=== PATIENT | male | born 1940 | race Caucasian/White ===

== ENCOUNTER 2022-05-31 13:05 | Outpatient (CLI) | payer MEDICARE, SELFPAY | END 2022-05-31 13:06 | disposition home or self-care (01) | PROVIDERS: PCP Family Medicine; Visit Provider Internal Medicine | DX: R06.09 Other forms of dyspnea (principal); I51.7 Cardiomegaly; I48.0 Paroxysmal atrial fibrillation; Z95.0 Presence of cardiac pacemaker | CPT/HCPCS: 93306 ==

== ENCOUNTER 2022-07-26 09:06 | Outpatient (CLI) | payer MEDICARE, SELFPAY | END 2022-07-26 09:07 | disposition home or self-care (01) | LOC: OP CLINIC 09:06 | PROVIDERS: PCP Family Medicine; Visit Provider Internal Medicine Gastroenterology | DX: Z12.11 Encounter for screening for malignant neoplasm of colon (principal); K63.5 Polyp of colon; K57.30 Diverticulosis of large intestine without perforation or abscess without bleeding; Z86.010 Personal history of colon polyps | CPT/HCPCS: 45380; 45385; 88305; J2250; J3010 ==

== ENCOUNTER 2022-11-16 10:00 | Outpatient (RCR) | payer MEDICARE, SELFPAY | END 2022-11-16 10:58 | disposition home or self-care (01) | PROVIDERS: PCP Family Medicine; Visit Provider Family Medicine | DX: M25.562 Pain in left knee (principal); Z51.89 Encounter for other specified aftercare | CPT/HCPCS: 97012; 97110; 97140; 97162 ==

== ENCOUNTER 2023-06-23 08:30 | Outpatient (RCR) | payer MEDICARE, SELFPAY | END 2023-09-14 09:59 | disposition home or self-care (01) | PROVIDERS: PCP Family Medicine; Visit Provider Specialist | DX: M50.20 Other cervical disc displacement, unspecified cervical region (principal); M54.12 Radiculopathy, cervical region; M25.512 Pain in left shoulder; Z51.89 Encounter for other specified aftercare | CPT/HCPCS: 97110; 97112; 97140; 97162 ==

== ENCOUNTER 2023-09-26 11:53 | Inpatient (IN) | payer MEDICARE, SELFPAY ==
[2023-09-26] VITALS (23 sets, daily range): BP systolic 136–171; BP diastolic 72–95; PULSE 60–89; RESP 16–20; TEMP 36.6–36.7; O2SAT 91–97; BMI 36.2; BMI 34.9
--- NOTE | 2023-09-26 12:21 | CRLHL7_ITS ---
For Patients: As a result of the Century Cures Act, medical imaging exams and procedure reports are released immediately into your electronic medical record. You may view this report before your referring provider. If you have questions, please contact your health care provider. INDICATION: Right-sided abdominal pain for 2 days. TECHNIQUE: CT abdomen and pelvis acquired with 100 cc Isovue 370 IV contrast. COMPARISON: 12/22/2021. FINDINGS: Lower chest: Partially visualized dual chamber pacemaker leads. Minimal dependent atelectasis. Liver: Unremarkable. Normal in size and attenuation. No suspicious masses. Gallbladder and bile ducts: Multiple small gallstones within the gallbladder neck and body. No pericholecystic inflammatory change or biliary ductal dilation. Pancreas: Unremarkable. No mass or inflammation. Spleen: Unremarkable. Normal in size. No masses. Adrenal glands: Unremarkable. No nodules. Kidneys: Symmetric renal enhancement. No hydronephrosis. Punctate low right interpolar renal calculus. No ureteral calculi. GI tract: Nonobstructed bowel. Moderate colonic fecal burden. Scattered descending and sigmoid colon diverticula without findings of diverticulitis. The appendix is not definitively visualized. No inflammatory changes at the cecal pole to suggest appendicitis. Mesenteric he haziness in the mid abdomen with scattered subcentimeter lymph nodes. Vasculature: Abdominal aorta is normal in caliber. Lymph nodes: No lymphadenopathy. Peritoneum/Abdominal Wall: Unremarkable. No sign of mass or infiltration. No free air or significant free fluid. Pelvis: Unremarkable. Bones: Osseous demineralization. Moderate bilateral hip osteoarthritis. Severe degenerative changes of the left L5-S1 facet and irregularity of the left posterior ilium, which may be from prior bone graft harvest site. There are laminectomy changes at L4-L5 with interbody graft. Additionally, there are laminectomy changes at L1-L3 with chronic nondisplaced fractures of bilateral L2 inferior articular processes with similar trace anterolisthesis of L2 on L3. Multilevel degenerative disc disease involving the thoracolumbar spine with evidence of diffuse idiopathic skeletal hyperostosis. IMPRESSION: 1. No acute abnormality identified to explain the patient`s right-sided abdominal pain. 2. Chronic incidental findings including cholelithiasis, diverticulosis and right nephrolithiasis. 3. 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 Please note that all CT scans at this facility use dose modulation, iterative reconstruction, and/or weight-based dosing when appropriate to reduce radiation dose to as low as reasonably achievable. Dictated by Dagmar Brothers MD @ 09/26/2023 3:00:47 PM (Electronically Signed)
--- OUTSIDE RECORDS SUMMARY | 2023-09-26 12:30 | XMS_ITS | Continuity of Care Document ---
Author Name Unknown Organization [facility] Address [address] [place] [address] Phone Care Team Providers Care Sheet Mill Supervisor Name Role Phone Angy VALENTE MD, Bipin Unavailable Unavailable Advance Directives Directive Yes / No Effective Date File Name No Information Encounters Encounter Description Practice Location Reason(s) For Visit Diagnoses Date Provider Providers Copied on Encounter [facility], [address], [place], [place], [id number], [place] tel:[phone] No Information [address], [place], [address], [place]. tel:[phone] Referring Provider: Bipin Butt, [address] [place], [place], [facility]. tel:[phone] Family History Family Member Type Diagnosis Age At Onset No Information Payers Payer name Insurance type Covered democrat ID Authoriza tion(s) AAR Medicare Complete CI [id number] Social History Type Description Quantity Date Captured Comments Sex Male Smoking Status No Information Chief Complaint And Reason For Visit No Information Reason For Referral Reason For Referral No Information History Of Present Illness Encounter Date Complaint History Of Prese nt Illness No Information Functional Status Date Functional Assessmen t No Information Instructions Date Instruction Additional Infor mation No Information Assessments Type Assessment Date No Information Patient Care Teams Name Effective Dates (start - stop) Status Members No Information
--- OUTSIDE RECORDS SUMMARY | 2023-09-26 12:30 | XMS_ITS | Clinical Summary ---
Author Name Unknown Organization [facility] Address [place], [place] [address] Care Team Providers Care Drain Technician Name Role Phone Oscar Taylor MD Unavailable [phone] Raffaele Mcdowell MD Unavailable Louis Aguilar MD Unavailable Unavail able Teresa Salazar DO Primary Care Provider [phone] Sylvie Zamora RN Unavailable [phone] Allergies Active Allergy Reactions Criticality Noted Date Comments Bee Venom Protein (Honey Bee) Anaphylaxis High 07/01 Hymenoptera Allergenic Extract Anaphylaxis bee stings Medications Medication Sig Dispensed Refills Start Date End Date Status omega-3 fatty acids-vitamin E (FISH OIL) 1,000 mg capIndications:Arth ralgia Take by mouth once daily. 0 04/25/2012 Active sod bicarb-sod chlor-neti pot (NEILMED NASAFLO) pkdvIndications:Sin us pain,Acute recurrent maxillary sinusitis by sinus irrigation route once daily. 1 Each 3 10/09/2019 Active multivitamin (MVI) tablet Take 1 tablet by mouth once daily. 0 01/03/2020 Active WalkerIndications:C hronic bilateral low back pain without sciatica,Primary osteoarthritis of right knee Walker with wheels,seat,hand brakes,and basket for home use. 1 Device 0 05/26/2020 Active menthol (BIOFREEZE, MENTHOL,) 5 % topical gel Once daily as needed. 0 07/21/2020 Active ascorbic acid, vitamin C, (VITAMIN C) 1,000 mg tablet Take 1 tablet by mouth once daily. 0 08/05/2020 Active durable medical equipment (DME)Indications:Ed maureen of left lower extremity One pair of compression stockings (15-20 mmHg) 2 Each 0 10/29/2020 Active magnesium oxide (MAG-OX 400) 400 mg tabletIndications:F requent PVCs Take 1 Tablet (400 mg) by mouth once daily. 0 02/04/2021 Active budesonide (PULMiCORT) 1 mg/2 mL neb suspensionIndicatio ns:Chronic sinusitis, unspecified location,Rhinorrhea ,Nasal septal perforation Put 1 respule in sinus rinse kit and irrigate 2 times daily 60 mL 0 10/13/2021 Active triamcinolone (ARISTOCORT; KENALOG) 0.1 % creamIndications:Pr uritus Apply topically to affected area(s) once daily. 80 g 1 11/18/2021 Active white petrolatum-mineral oil-lanolin (Eucerin) topical creamIndications:Pr uritus Apply topically to affected area(s) once daily if needed for Dry Skin. 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 60 Tablet 1 02/08/2022 Active fexofenadine (ARCADIO) 180 mg tabletIndications:P erennial allergic rhinitis Take 180 mg by mouth once daily. 90 tablet. 3 02/08/2022 Active mupirocin (BACTROBAN OINTMENT) ointmentIndications :Chronic sinusitis, unspecified location,Rhinorrhea ,Nasal septal perforation,Vasomot or rhinitis,Nasal congestion PUT A PEA SIZE AMOUNT INTO SINUS RINSE KIT AND IRRIGATE TWICE DAILY 22 g 5 11/09/2022 Active amLODIPine (NORVASC) 5 mg tabletIndications:E ssential hypertension Take 1 Tablet (5 mg) by mouth two times daily. 180 Tablet 3 11/29/2022 Active acyclovir (ZOVIRAX) 400 mg tabletIndications:R ecurrent cold sores Take 1 Tablet (400 mg) by mouth two times daily. 180 Tablet 3 12/20/2022 Active finasteride (PROSCAR) 5 mg tabletIndications:B enign prostatic hyperplasia, unspecified whether lower urinary tract symptoms present Take 1 Tablet (5 mg) by mouth every morning. 90 Tablet 3 01/12/2023 Active tamsulosin (FLOMAX) 0.4 mg capsuleIndications: Benign prostatic hyperplasia, unspecified whether lower urinary tract symptoms present Take 1 Capsule (0.4 mg) by mouth once daily after a meal. 90 Capsule 3 01/12/2023 Active pantoprazole (PROTONIX) 40 mg delayed-release tabletIndications:G astroesophageal reflux disease, unspecified whether esophagitis present Take 1 Tablet (40 mg) by mouth once daily. 90 Tablet 3 01/12/2023 Active glimepiride (AMARYL) 2 mg tabletIndications:T ype 2 diabetes mellitus with hyperglycemia, without long-term current use of insulin (HC) Take 0.5 Tablets (1 mg) by mouth once daily with a meal. 45 Tablet 3 01/12/2023 Active metFORMIN (GLUCOPHAGE) 1,000 mg tabletIndications:T ype 2 diabetes mellitus with hyperglycemia, without long-term current use of insulin (HC) Take 1 Tablet (1,000 mg) by mouth two times daily with meals. 180 Tablet 3 01/12/2023 Active flecainide (TAMBOCOR) 50 mg tabletIndications:F requent PVCs,Paroxysmal atrial fibrillation (HC) Take 1 Tablet (50 mg) by mouth every 12 hours. 180 Tablet 3 01/12/2023 Active lisinopriL (PRINIVIL; ZESTRIL) 20 mg tabletIndications:E ssential hypertension Take 1 Tablet (20 mg) by mouth two times daily. 180 Tablet 3 01/12/2023 Active montelukast (SINGULAIR) 10 mg tabletIndications:P erennial allergic rhinitis Take 1 Tablet (10 mg) by mouth at bedtime. 90 Tablet 3 01/12/2023 Active cloNIDine HCL (CATAPRES) 0.1 mg tabletIndications:R esistant hypertension Take 1 Tablet (0.1 mg) by mouth two times daily. 180 Tablet 3 03/18/2023 Active warfarin (COUMADIN) 5 mg tabletIndications:P aroxysmal atrial fibrillation (HC),Anticoagulatio n monitoring, INR range 2-3 Take by mouth 10 mg (5 mg x 2) every e, Fri; 7.5 mg (5 mg x 1.5) all other days in the evening OR as directed 0 05/03/2023 Active atorvastatin (LIPITOR) 40 mg tabletIndications:H yperlipidemia, unspecified hyperlipidemia type Take 1 Tablet (40 mg) by mouth at bedtime. 90 Tablet 3 07/06/2023 Active carvediloL (Coreg) 12.5 mg tabletIndications:E ssential hypertension Take 1.5 Tablets (18.75 mg) by mouth two times daily with meals. 90 Tablet 11 08/16/2023 4 Active blood sugar diagnostic (OneTouch Ultra Test) stripIndications:Ty pe 2 diabetes mellitus with hyperglycemia, without long-term current use of insulin (HC) Test 2 times/day. Dispense item covered by pt ins. E11.9 NIDDM type II Reason: High A1C 200 Each 3 08/25/2023 Active BiPapIndications:Ob structive sleep apnea bPAP machine for home use at pressure: I: 14 E: 10 cmw , Heated humidifier x 1 q 5 yr, Humidifier chamber x 1 q 6 mo, Full face mask x1 q 3mos, with cushion x 2 q mo, Heated tubing x 1 q 3 mo, Headgear x 1 q 6 mo, Filters: Disposable x 2 q mo non-disposable filters x1 q 6mo, Length of Need: 99 months, Frequency of use: Daily 1 Each 11 09/20/2023 Active BiPapIndications:Ob structive sleep apnea bPAP machine for home use at pressure: I: 14 E: 10 cmw , Heated humidifier x 1 q 5 yr, Humidifier chamber x 1 q 6 mo, Full face mask x1 q 3mos, with cushion x 2 q mo, Heated tubing x 1 q 3 mo, Headgear x 1 q 6 mo, Filters: Disposable x 2 q mo non-disposable filters x1 q 6mo, Length of Need: 99 months, Frequency of use: Daily 1 Device 11 12/10/2020 4 Discontinu ed(*Medica tion adjustment ) Active Problems Problem Noted Date Diagnosed Date TIA (transient ischemic attack) 07/01/2023 Cervical radiculopathy 03/26/2023 Arthritis of carpometacarpal (CMC) joint of left thumb 03/26/2023 Overview: February 2023: Left thumb CMC Joint injection. Neck pain, chronic 01/19/2023 Overview: December 2022: Rayus C7-T1 epidural steroid injection. 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 Justin Bates, Pacemaker is MRI conditional Safe, It needs interrogation/reprogramming right before and right after the MRI. Family history of rectal cancer 06/16/2022 Overview: brother Other specified anemias 12/22/2021 Paroxysmal atrial fibrillation 07/16/2020 Anticoagulation monitoring, INR range 2-3 2019 Primary osteoarthritis of right knee 10/02/2019 Anemia of unknown etiology 10/02/2019 Type 2 diabetes mellitus wit h hyperglycemia, without long-term current use of insulin 09/12/2019 Chronic diastolic CHF (congestive heart failure) 10/12/2017 Perennial allergic rhinitis 06/29/2016 Herniated disc, cervical 02/20/2016 Essential hypertension 10/07/2015 Adenomatous colon polyp 04/11/2014 Overview: Colonoscopy 03/2014 polyp repeat in 5 years Colonoscopy 06/2022 TA, no follow up needed B12 deficiency 03/07/2014 Fatty liver 11/02/2013 Overview: On CT 11/02/13 Chronic meniscal tear of knee 04/03/2013 Overview: L knee R knee 2014 Frequent PVCs 04/25/2012 Stenosing tenosynovitis - left index finger 12/29 Sensorineural hearing loss, bilateral 01/26/2012 Overview: Left worse than the right PANCHO 11/29/2010 AHI-35 02/11/2011 SVT (supraventricular tachycardia) Overview: -diagnosed 1998 -10/2010 recurrent SVT x4 with visits to [place] (10/16/10, 11/03/10, 11/05/10, 11/07/10) -EPS and ablation with Dr. Soto -11/27/2010 Benign prostatic hypertrophy Chronic bilateral low back pain without sciatica Overview: -s/p 4 lumbar surgeries Severe obesity Dyslipidemia Diabetes mellitus without complication Overview: -Pre-DM diagnosed 2006 and DM diagnosed 11/2009 Resolved Problems Problem Noted Date Diagnosed Date Resolved Date Sleep apnea 04/12/2011 06/28/2017 Perennial allergic rhinitis 04/01/2011 06/29/2016 Impaired fasting glucose 12/05/2009 Overview: Dx 2006 Other abnormal glucose 12/05 Overview: Since 2006 Allergic rhinitis 06/29/2016 Encounters Date Type Department Care Team Description 09/26/[address] [address] Shirley Gonsalez PA Abdominal Pain 09/20/2023 9:00 AM DRUM FILLER Office Visit [address] [address] Kali Kate MD Sleep Follow-up 09/20/2023 Travel 09/19/[address] [address] Marianna Lopez NP Appointment 09/05/2023 Anticoagulation (warfarin) [address] [address] 1[facility] Anticoagulation 09/02/2023 2:30 PM DRUM FILLER Ancillary Procedure [address] [address] 09/02/2023 9:20 AM DRUM FILLER Orders Only [address] [address] Lab[facility] 09/02/2023 7:50 AM DRUM FILLER Office Visit [facility] [address] [place] [address] Refugio France MD Musculoskeletal Problem (Follow-up for LEFT Knee and LEFT Wrist injury/DOI 08/08/[address] leading into home/Knee seems better, Wrist about the same) 09/02/2023 Telephone [facility] Yuan [address] [place] [address] [place] [address] Luis Enrique Johnston MD Results 09/02/2023 Travel 08/25/2023 12:00 PM DRUM FILLER Ancillary Procedure [facility] [address] [place] [address] 08/25/2023 11:00 AM DRUM FILLER Office Visit [facility] [address] [place] [address] Teresa Salazar DO Medicare ANNUAL (subsequent) Visit 08/25/2023 Patient Outreach [facility] Care Management - Advanced Care Team [address] [place] [address] Altagracia Ramos Complex Care Management (Engagement Outreach) 08/25/2023 Travel 08/16/2023 3:30 PM DRUM FILLER Office Visit [facility] [address] [place] [address] Luis Enrique Johnston MD Follow Up (Annual follow up /PVC, SOB and A fib /In June possible experiencing TIA ) 08/16/2023 Travel 08/11/2023 10:30 AM DRUM FILLER Ancillary Procedure [facility] [address] [place] [address] 08/11/2023 10:15 AM DRUM FILLER Ancillary Procedure [facility] [address] [place] [address] 08/11/2023 9:05 AM DRUM FILLER Office Visit [facility] [address] [place] [address] Refugio France MD Musculoskeletal Problem (Consultation for LEFT Knee and LEFT Wrist Injury/Had a fall on 08/08/2023/Tripped on step leading into house. Landing on LEFT knee and LEFT hand) 08/11/2023 Travel 08/09/2023 1:20 PM DRUM FILLER Orders Only [facility] [address] [facility] [address] [facility] 08/09/2023 Anticoagulation (warfarin) [facility] [address] [place] [address] 1[facility] Anticoagulation 08/09/2023 Travel 07/25/2023 1:40 PM DRUM FILLER Orders Only [facility] [address] [place] [address] [facility] 07/25/2023 Anticoagulation (warfarin) [facility] [address] [facility] [place] [address] 1, [facility] Anticoagulation 07/25/2023 Telephone [facility] [address] [place] [address] Marie Teresa Pat, DO Anticoagulation (BPA-/doxycycline 100 mg tablet/) 07/25/2023 Travel 07/19/2023 10:00 AM DRUM FILLER Orders Only [facility] [address] [place] [address] [facility] 07/19/2023 Anticoagulation (warfarin) [facility] [address] [place] [address] 1[facility] Anticoagulation 07/19/2023 Travel 07/05/2023 9:40 AM DRUM FILLER Orders Only [facility] [address] [place] [address] [facility] 07/05/2023 Anticoagulation (warfarin) [facility] [address] [place] [address] 1[facility] Anticoagulation 07/05/2023 Telephone [facility] [address] [place] [address] Marie Teresa Pat, DO Anticoagulation 07/05/2023 Travel 07/02/2023 Anticoagulation (warfarin) [facility] [address] [place] [address] [facility] Anticoagulation (Office Visit ) 07/02/2023 Telephone [facility] [address] [facility] [address] Teresa Salazar Pat, DO Anticoagulation (Renewal Orders) 07/01/2023 2:10 PM CDT Office Visit [facility] [address] [place] [address] Marie Teresa Pat, DO Edema (compression socks worn. only since knee surgery. last couple weeks); Sob (SOB last few months, has sinus problems, cough and post nasal drip) 07/01/2023 Travel 06/27/2023 Nurse/Clinic Staff Only [facility] [address] [place] [address] Darlene Espinoza PA Flu Shot (Walk in flu shot/) from Last 3 Months Immunizations Name Administration Dates Next Due COVID-19 Vaccine Spikevax (M oderna 50mcg/0.5mL) 12YO+ [id number] Formula PF 08/25/2023 COVID-19 vaccine (Pfizer-Bio NTech 30mcg/0.3mL) 12YO+ BIVALENT PF, MDV 05/17/2022 COVID-19 vaccine (Pfizer-Bio NTech 30mcg/0.3mL) PF, MDV 05/26/2021,11/13/2020,10/23/2020 Influenza, High-dose Inactivated 06/29/2016,01/2016,07/03/2014 Influenza, IIV3 (Age >=3 years) 07/31/2013,09/08,08/15/2009 Influenza, Inactivated AIIV4 (Age 65+ Years) Preserv Free 06/27/2023,06/14/2022,09/07/2021,2019 Influenza, Inactivated IIV3 (Age 65+ Years) Preserv Free 06/05/2019,06/05/2019,06/13/2018,2016 Pneumococcal Poly,23-Valent (Pneumovax) 11/05/2011,07/11/1997 Pneumococcal conj 13-Valent (Prevnar 13) 07/13/2016 Td (Age >=7 Years) 10/27/2005 Tdap 01/17/2013 Tuberculin (PPD) 07/13/2011 Zoster (Shingrix-RZV, recombinant) 04/11/2019,,12/27/2018 Zoster (Zostavax-ZVL, live) 07/31/2013 Family History Medical History Relation Name Comments Cancer-colon Brother in his 50's Diabetes Father d 87 yo Heart Disease Father [place] 77 yo Blood Disease Mother B12 deficiency Heart Disease Mother CABG in her 70 's b 1916 Diabetes Sister 1 Diabetes Sister 2 Cancer Sister 3 ovarian CA Anesthesia Problem No Family History Relation Name Status Comments Brother Father Mother Sister 1 Sister 2 Sister 3 Social History Tobacco Use Types Packs/Day Years Used Date Smoking Tobacco: Never Passive Smoke Exposure: Never Smokeless Tobacco: Never Tobacco Cessation:Counseling Given: Not Answered Alcohol Use Standard Drinks/Week Comments No 0 (1 standard drink = 0.6 oz pur e alcohol) PHQ-2 Answer Date Recorded PHQ-2 TOTAL SCORE 1 08/25/2023 Social Connections Answer Date Recorded Frequency of Communication with Friends and Fami ly Not on file 12/27/2022 Financial Resource Strain Answer Date R ecorded Difficulty of Paying Living Expenses 3 12/22/2021 Difficulty of Paying Living Expenses Not on file 12/22/2021 Food Insecurity Answer Date Recorded Worried About Running Out of Food in the Last Ye ar 1 12/22/2021 Transportation Needs Answer Date Record ed Lack of Transportation (Medical) 1 12/22/2021 Housing Stability Answer Date Recorded Unable to Pay for Housing in the Last Year 1 12/22/2021 Sex and Gender Information Value Date Recorded Sex Assigned at Not on file Gender Identity Not on file Sexual Orientation Not on file Obstetrics History Last Filed Vital Signs Vital Sign Reading Time Taken Comments Blood Pressure 145/65 09/20/2023 9:00 AM DRUM FILLER Pulse 82 09/20/2023 9:00 AM DRUM FILLER Temperature 36.7 ??C (98.1 ??F) 10/01/2022 9:22 AM CS T Respiratory Rate 18 11/09/2022 9:32 AM CDT Oxygen Saturation 98% 09/20/2023 9:00 AM DRUM FILLER Inhaled Oxygen Concentration - - Weight 108.6 kg (239 lb 6.4 oz) 09/20/2023 9:00 AM DRUM FILLER Height 170.2 cm (5' 7) 09/20/2023 9:00 AM DRUM FILLER Body Mass Index 37.5 09/20/2023 9:00 AM DRUM FILLER Plan of Treatment Upcoming Encounters Date Type Department Care Team (Late st Contact Info) Description 09/29/2023 3:05 PM DRUM FILLER Office Visit [facility] [address] [place] [address] Refugio France MD [address] [place] [address] 09/30/2023 9:00 AM DRUM FILLER Orders Only [address] [address] [place] 10/26/2023 9:20 AM DRUM FILLER Office Visit [address] [address] Teresa Salazar Pat, DO [address] [place] [address] 01/10/2024 1:30 PM CDT Cardiac Device Check [facility] [address] [place] [phone] Health Maintenance Due Date Last Done Comments Tetanus booster 01/17/2023 01/17/2013, 10/27/2005 Medicare Wellness for age 65+ 08/24/2024, 09/07/2021, 10/02/2019, Additional history exists Depression screening for age 12+ 08/25/2024 08/25/2023, 08/25/2023, 08/07/2022, Additional history exists BMI (ht and wt on same day) for age 18+ 09/20/2024 09/20/2023, 08/25/2023, 12/28/2022, Additional history exists Tdap Completed 01/17/2013 Pneumococcal series for age 65+ Completed 07/13/2016, 11/05/2011, 07/11/1997 Zoster (shingles) series for age 50+ Completed 04/11/2019, 03/29/2019, 12/27/2018, Additional history exists Influenza for age 65+ Completed 06/27/2023 , 06/14/2022, 09/07/2021, Additional history exists COVID-19 vaccine series Completed 08/25/20, 05/17/2022, 05/26/2021, Additional history exists Goals Goal Patient Goal Type Associated Problems Recent Progress Patient-Stated? Author BLOOD PRESSURE - MAINTAINS BP less than 140/90 Blood Pressure No Vipin Nick MD BLOOD PRESSURE-MAINTA INS BP LESS THAN 130/80 Blood Pressure No Edward Philippe MD Medical Devices Implanted Type Area Company Driver Device Identifier Shelf Expiration Date Model / Serial / Lot Dual Chamber Mri Conditional Pacemaker Implanted:08/27 by Justin Bates MD (Quantity not on file) Standard Pacemaker [employer] JOHN XT DR MRI SUREVAAN [id number] / [id number] / [id number] 42bone Cerv 8mm 4deg David W/P [[id number]] Implanted:Qty: 1 on 02/20/2016 by Leyla Acosta MD at [facility] Explanted:at [facility] (Quantity not on file) N/A: Spine David Spine 07/07/2020 [id number] / [id number] / [id number] Matrix 1cc Dbx Putty Dbm [[id number]] Implanted:Qty: 1 on 02/20/2016 by Leyla Acosta MD at [facility] Explanted:at [facility] (Quantity not on file) N/A: Spine Musculoskeletal Transplant 10/27/2017 [id number] / [id number] / [id number] 56bone Cerv 8mm 4deg David W/P [[id number]] Implanted:Qty: 1 on 02/20/2016 by Leyla Acosta MD at [facility] Explanted:at [facility] (Quantity not on file) N/A: Spine Berclair Spine 09/30/2020 [id number] / [id number] / Plate Cerv 2lvl 32mm Aviator Ant - [id number] Implanted:Qty: 1 on 02/20/2016 by Leyla Acosta MD at [facility] N/A: Spine Berclair Spine [id number] / / Screw Cerv Ant 4.0x14mm Aviator Va Slf Drill - [id number] Implanted:Qty: 6 on 02/20/2016 by Leyla Acosta MD at [facility] N/A: Spine Berclair Spine [id number] / / Procedures Procedure Name Priority Date/Time Associated Diagnosis Comments US CAROTID DUPLEX BILATERAL Routine 09/02/2023 3:18 PM DRUM FILLER Essential hypertension INR,POCT Routine 09/02/2023 8:52 AM DRUM FILLER Paroxysmal atrial fibrillation (HC) Anticoagulation monitoring, INR range 2-3 XR WRIST W NAVICULAR MINIMUM 3 VIEWS LEFT Routine 08/25/2023 12:10 PM DRUM FILLER Pain of left thumb XR WRIST W NAVICULAR MINIMUM 3 VIEWS LEFT Routine 08/11/2023 10:20 AM DRUM FILLER Left wrist pain XR KNEE 3 VIEWS LEFT Routine 08/11/2023 10:20 AM DRUM FILLER Acute pain of left knee INR,POCT Routine 08/09/2023 11:37 AM DRUM FILLER Paroxysmal atrial fibrillation (HC) Anticoagulation monitoring, INR range 2-3 INR,POCT Routine 07/25/2023 9:40 AM DRUM FILLER Paroxysmal atrial fibrillation (HC) Anticoagulation monitoring, INR range 2-3 INR,POCT Routine 07/19/2023 10:06 AM DRUM FILLER Paroxysmal atrial fibrillation (HC) Anticoagulation monitoring, INR range 2-3 INR,POCT Routine 07/05/2023 9:41 AM DRUM FILLER Paroxysmal atrial fibrillation (HC) Anticoagulation monitoring, INR range 2-3 URINE ALBUMIN TO CREATININE RATIO, RANDOM Routine 07/01/2023 3:14 PM CDT Type 2 diabetes mellitus with hyperglycemia, without long-term current use of insulin (HC) CBC WITH AUTO DIFFERENTIAL Routine 07/01/2023 3:12 PM CDT Hyperlipidemia, unspecified hyperlipidemia type Essential hypertension HEMOGLOBIN A1C Routine 07/01/2023 3:12 PM CDT Type 2 diabetes mellitus with hyperglycemia, without long-term current use of insulin (HC) BASIC METABOLIC PANEL Routine 07/01/2023 3:12 PM CDT Essential hypertension CBC WITH AUTO DIFFERENTIAL Routine 07/01/2023 3:12 PM CDT Hyperlipidemia, unspecified hyperlipidemia type Essential hypertension LIPID PANEL W REFLEX MEASURED LDL Routine 07/01/2023 3:12 PM CDT Hyperlipidemia, unspecified hyperlipidemia type ALT (SGPT) Routine 07/01/2023 3:12 PM CDT Fatty liver PROTIME-INR STAT 07/01/2023 3:12 PM CDT Paroxysmal atrial fibrillation (HC) Anticoagulation monitoring, INR range 2-3 from Last 3 Months Results * US CAROTID DUPLEX BILATERAL (09/02/2023 3:18 PM DRUM FILLER) Anatomical Region Laterality Modality CAROTID, NECK Ultrasound 09/02/2023 3:25 PM DRUM FILLER Impressions 09/02/2023 3:25 PM DRUM FILLER Less than 50 percent stenosis of the internal carotid arteries bilaterally. Dictated by Rene Mtz MD @ Aug ??5 2023 ??3:25PM (Electronically Signed) ?? Narrative 09/02/2023 3:25 PM DRUM FILLER For Patients: ??As a result of the 21st Century Cures Act, medical imaging exams and procedure reports are released immediately into your electronic medical record. ??You may view this report before your referring provider. ??If you have questions, please contact your health care provider. CLINICAL HISTORY: Hypertension Comparison: 03/23/2019 TECHNIQUE: The carotid circulations and the vertebral arteries in the neck were examined with de la cruz-scale ultrasound, color-flow and Doppler spectral analysis. Degrees of stenosis were determined using SRU 2002 Consensus Panel Criteria. FINDINGS: Sonographic images demonstrate minimal atherosclerotic plaque formation or suspicious soft tissue mass. ??There was antegrade blood flow demonstrated within the vertebral arteries and the subclavian arteries demonstrated a normal triphasic waveform. ??The spectral Doppler tracings of the common carotid, internal and external carotid arteries demonstrate no abnormal turbulence or spectral broadening. ??There was no significant elevation of peak systolic blood flow which would indicate a hemodynamically-significant stenosis by SRU criteria. The ICA/CCA peak systolic velocity ratio measures 0.9 on the right and 1.2 on the left. ?? Procedure Note Rene Mtz MD - 09/02/2023 For Patients: As a result of the Cures Act, medical imagingexams and procedure reports are released immediately into your electronicmedical record. You may view this report before your referring provider.If you have questions, please contact your health care provider. CLINICAL HISTORY: Hypertension Comparison: 03/23/2019 TECHNIQUE: The carotid circulations and the vertebral arteries in the neck wereexamined with de la cruz-scale ultrasound, color-flow and Doppler spectralanalysis. Degrees of stenosis were determined using SRU 2002 ConsensusPanel Criteria. FINDINGS: Sonographic images demonstrate minimal atherosclerotic plaque formation orsuspicious soft tissue mass. There was antegrade blood flow demonstratedwithin the vertebral arteries and the subclavian arteries demonstrated anormal triphasic waveform. The spectral Doppler tracings of the commoncarotid, internal and external carotid arteries demonstrate no abnormalturbulence or spectral broadening. There was no significant elevation ofpeak systolic blood flow which would indicate ahemodynamically-significant stenosis by SRU criteria. The ICA/CCA peaksystolic velocity ratio measures 0.9 on the right and 1.2 on the left. IMPRESSION: Less than 50 percent stenosis of the internal carotid arteriesbilaterally. Dictated by Rene Mtz MD @ Sep 02 2023 3:25PM (Electronically Signed) Luis Enrique Johnston MD [place] * (ABNORMAL) INR,POCT (09/02/2023 8:52 AM DRUM FILLER) Only the most recent of5 resultswithin the time period is included. INR 2.4(H) <1.3 09/02/2023 8:54 AM DRUM FILLER [facility] Blood BLOOD SPECIMEN / Unknown 09/02/2023 8:52 AM DRUM FILLER 09/02/2023 8:54 AM DRUM FILLER Narrative [facility] - 09/02/2023 8:54 AM DRUM FILLER ?Therapeutic Range 2.0-3.0 for most anticoagulated patients 2.5-3.5 or 4.0 for high risk patients Teresa Salazar DO LABORATORY [facility] [address] [place] [address], * XR WRIST W NAVICULAR MINIMUM 3 VIEWS LEFT (08/25/2023 12:10 PM DRUM FILLER) Only the most recent of2 resultswithin the time period is included. Anatomical Region Laterality Modality WRISTS, WRIST L Computed Radiogr aphy 08/25/2023 12:3 2 PM DRUM FILLER Narrative 08/25/2023 12:32 PM DRUM FILLER For Patients: ??As a result of the Cures Act, medical imaging exams and procedure reports are released immediately into your electronic medical record. ??You may view this report before your referring provider. ??If you have questions, please contact your health care provider. Indication: Pain Technique: Left wrist with navicular 4 views Comparison: 08/11/2023 Findings: Joint space narrowing and spurring at the 1st carpometacarpal joint. Vascular calcifications. Hypertrophic changes at the radial styloid. Mild degenerative changes at the triscaphe joint. No acute fracture. Scaphoid intact. No carpal malalignment. Impression: Degenerative joint disease. No acute fracture. Dictated by Rene Mtz MD @ Aug 25 2023 12:32PM (Electronically Signed) ?? Procedure Note Rene Mtz MD - 08/25/2023 For Patients: As a result of the Cures Act, medical imagingexams and procedure reports are released immediately into your electronicmedical record. You may view this report before your referring provider.If you have questions, please contact your health care provider. Indication: Pain Technique: Left wrist with navicular 4 views Comparison: 08/11/2023 Findings: Joint space narrowing and spurring at the 1st carpometacarpal joint.Vascular calcifications. Hypertrophic changes at the radial styloid. Milddegenerative changes at the triscaphe joint. No acute fracture. Scaphoidintact. No carpal malalignment. Impression: Degenerative joint disease. No acute fracture. Dictated by Rene Mtz MD @ Aug 25 2023 12:32PM (Electronically Signed) Teresa Pat Shaqra DO GENERAL IMAGING * XR KNEE 3 VIEWS LEFT (08/11/2023 10:20 AM DRUM FILLER) Anatomical Region Laterality Modality KNEES, KNEE L Computed Radiogr aphy 08/11/2023 2:22 PM DRUM FILLER Narrative 08/11/2023 2:22 PM DRUM FILLER For Patients: ??As a result of the Cures Act, medical imaging exams and procedure reports are released immediately into your electronic medical record. ??You may view this report before your referring provider. ??If you have questions, please contact your health care provider. Indication: Knee pain Technique: Left knee 3 views Comparison: 08/06/2020 Findings: Narrowing at the medial compartment. Lateral compartment spurring and spurring of the medial tibial spine. Patellofemoral spurring. Joint effusion. Chronic distal quadriceps tendinosis. Vascular calcifications. No fracture. 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 Dictated by Rene Mtz MD @ Aug 11 2023 ??2:22PM (Electronically Signed) ?? Procedure Note Rene Mtz MD - 08/11/2023 For Patients: As a result of the Cures Act, medical imagingexams and procedure reports are released immediately into your electronicmedical record. You may view this report before your referring provider.If you have questions, please contact your health care provider. Indication: Knee pain Technique: Left knee 3 views Comparison: 08/06/2020 Findings: Narrowing at the medial compartment. Lateral compartment spurring andspurring of the medial tibial spine. Patellofemoral spurring. Jointeffusion. Chronic distal quadriceps tendinosis. Vascular calcifications.No fracture. 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 Dictated by Rene Mtz MD @ Aug 11 2023 2:22PM (Electronically Signed) Refugio France MD GENERAL IMAGING * (ABNORMAL) URINE ALBUMIN TO CREATININE RATIO, RANDOM (07/01/2023 3:14 PM CDT) ALB RAND URINE 23.7 mg/L 07/01/2023 11:53 PM CDT [facility]AL [facility] CREATININE,URIN E 0.31 g/L 07/01/2023 11:53 PM CDT [facility] TRA [facility]ORY ALBUMIN TO CREATININE RATIO,RAND UR 76.5(H) <30.0 mg/g creat 07/01/2023 11:53 PM CDT [facility] Urine URINE SPECIMEN / Unknown Non-Blood / Unknown 07/01/2023 3:14 PM CDT 07/01/2023 3:14 PM CDT Narrative [facility] - 07/01/2023 11:53 PM CDT If Albumin to Creatinine Ratio is elevated, consider the following: ? Elevations seen with incipient nephropathy associated ?? with diabetes mellitus or hypertension. Stress, exercise,hematuria, ?? and urinary tract infection may also produce elevated results. If clinically indicated, confirm with ?24 Hour Albumin to Creatinine Ratio. ?? Teresa Salazar DO URINE [facility] [address] [place] [address], [place] * (ABNORMAL) CBC WITH AUTO DIFFERENTIAL (07/01/2023 3:12 PM CDT) WHITE BLOOD COUNT 4.6 4.5 - 11.0 thou/cu mm 07/01/2023 3:32 PM CDT [facility] RED BLOOD COUNT 3.90(L) 4.30 - 5.90 mil/cu mm 07/01/2023 3:32 PM CDT [facility] HEMOGLOBIN 12.9(L) 13.5 - 17.5 g/dL 07/01/2023 3:32 PM CDT [facility] HEMATOCRIT 36.7(L) 37.0 - 53.0 % 07/01/2023 3:32 PM CDT [facility] MCV 94 80 - 100 fL 07/01/2023 3:32 PM CDT [facility] MCH 33.1 26.0 - 34.0 pg 07/01/2023 3:32 PM CDT [facility] MCHC 35.1 32.0 - 36.0 g/dL 07/01/2023 3:32 PM CDT [facility] RDW 12.7 11.5 - 15.5 % 07/01/2023 3:32 PM CDT [facility] PLATELET COUNT 197 140 - 440 thou/cu mm 07/01/2023 3:32 PM CDT [facility] MPV 9.3 6.5 - 11.0 fL 07/01/2023 3:32 PM CDT [facility] % NEUT 47.5 % 07/01/2023 3:32 PM CDT [facility] % LYMPH 24.6 % 07/01/2023 3:32 PM CDT [facility] % MONO 22.9 % 07/01/2023 3:32 PM CDT [facility] % EOS 4.8 % 07/01/2023 3:32 PM CDT [facility] % BASO 0.2 % 07/01/2023 3:32 PM CDT [facility] ABSOLUTE NEUTROPHILS 2.2 1.7 - 7.0 thou/cu mm 07/01/2023 3:32 PM CDT [facility] ABSOLUTE LYMPHOCYTES 1.1 0.9 - 2.9 thou/cu mm 07/01/2023 3:32 PM CDT [facility] ABSOLUTE MONOCYTES 1.1(H) <0.9 thou/cu mm 07/01/2023 3:32 PM CDT [facility] ABSOLUTE EOSINOPHILS 0.2 <0.5 thou/cu mm 07/01/2023 3:32 PM CDT [facility] ABSOLUTE BASOPHILS 0.0 <0.3 thou/cu mm 07/01/2023 3:32 PM CDT [facility] Blood BLOOD SPECIMEN / Unknown Venipuncture / Unknown 07/01/2023 3:12 PM CDT 07/01/2023 3:23 PM CDT Teresa Salazar DO HEMATOLOGY [facility] [address] [place] [address], * (ABNORMAL) LIPID PANEL W REFLEX MEASURED LDL (07/01/2023 3:12 PM CDT) CHOLESTEROL,TOTAL 120 100 - 199 mg/dL 07/01/2023 10:00 PM CDT [facility] Comment: Cholesterol, Total Reference Ranges Desirable <200 mg/dL Borderline 200-239 mg/dL High >=240 mg/dL TRIGLYCERIDES 111 <150 mg/dL 07/01/2023 10:00 PM CDT [facility] HDL CHOLESTEROL 39(L) >40 mg/dL 10:00 PM CDT [facility] NON-HDL CHOLESTEROL 81 <145 mg/dl 07/01/2023 10:00 PM CDT [facility] CHOL/HDL RATIO 3.08 <4.50 07/01/2023 10:00 PM CDT [facility] LDL CHOLESTEROL 59 <=130 mg/dL 07/01/2023 10:00 PM CDT [facility] VLDL CHOLESTEROL 22 <=30 mg/dL 07/01/2023 10:00 PM CDT [facility] PROVIDER ORDERED STATUS RANDOM 07/01/2023 10:00 PM CDT [facility] Blood BLOOD SPECIMEN / Unknown Venipuncture / Unknown 07/01/2023 3:12 PM CDT 07/01/2023 3:25 PM CDT Teresa Salazar DO CHEMISTRY Performing Organization Address [facility] Co de Phone Number [facility] [address] [place] [address], * (ABNORMAL) PROTIME-INR (07/01/2023 3:12 PM CDT) INR 3.3(H) <1.3 07/01/2023 8:46 PM CDT [facility] PROTIME 33.6(H) 12.2 - 14.3 sec 07/01/2023 8:46 PM CDT [facility] Blood BLOOD SPECIMEN / Unknown Venipuncture / Unknown 07/01/2023 3:12 PM CDT 07/01/2023 3:18 PM CDT Narrative [facility] - 07/01/2023 8:46 PM CDT ?Therapeutic Range 2.0-3.0 for most anticoagulated patients 2.5-3.5 or 4.0 for high risk patients The INR is only used for patients on stable oral anticoagulant therapy. It makes no significant contribution to the diagnosis or treatment of patients whose Protime is prolonged for other reasons. INR results are increased when heparin levels exceed 1.0 U/mL, which corresponds to an aPTT >125 seconds if the patient is on UFH. Teresa Barlowstefaniara [facility] Performing Organization Address [facility] Co de Phone Number [facility] [address] [place] [address], * ALT (SGPT) (07/01/2023 3:12 PM CDT) ALT (SGPT) 25 10 - 50 IU/L 07/01/2023 10:00 PM CDT [facility] Blood BLOOD SPECIMEN / Unknown Venipuncture / Unknown 07/01/2023 3:12 PM CDT 07/01/2023 3:25 PM CDT Teresa Pat Shaqra DO CHEMISTRY [facility] [address] [place] [address], [place] * (ABNORMAL) HEMOGLOBIN A1C MONITORING (POCT) (07/01/2023 3:12 PM CDT) HEMOGLOBIN A1C MONITORING (POCT) 7.0(H) <=6.4 % 07/01/2023 3:46 PM CDT [facility] Blood BLOOD SPECIMEN / Unknown Venipuncture / Unknown 07/01/2023 3:12 PM CDT 07/01/2023 3:23 PM CDT Narrative [facility] - 07/01/2023 3:46 PM CDT ? (<=6.9%) ? Indicates good control ? (7.0% to 7.9%) ? Indicates fair control ? (>=8.0%) ? Indicates poor control ?? NOTE: ??These thresholds are guidelines and ?individual targets may vary. Falsely low levels may be seen with: Recent Transfusion, Recent Significant Blood Loss, Hemolytic Diseases, or Falsely elevated levels may be seen with: Untreated Anemias, Splenectomy ? Teresa Pat Barlowandres [facility] Performing Organization Address [facility]/ZIP Co de Phone Number [facility] [address] [place] [address], [place] [phone] * (ABNORMAL) BASIC METABOLIC PANEL (07/01/2023 3:12 PM CDT) SODIUM 138 136 - 145 mmol/L 07/01/2023 10:00 PM CDT [facility] POTASSIUM 4.2 3.5 - 5.1 mmol/L 07/01/2023 10:00 PM CDT [facility] CHLORIDE 101 98 - 107 mmol/L 07/01/2023 10:00 PM CDT [facility] CO2,TOTAL 24 22 - 29 mmol/L 07/01/2023 10:00 PM CDT [facility] ANION GAP 13 5 - 18 07/01/2023 10:00 PM CDT [facility] GLUCOSE 130(H) 70 - 99 mg/dL 07/01/2023 10:00 PM CDT [facility] CALCIUM 9.2 8.8 - 10.2 mg/dL 07/01/2023 10:00 PM CDT [facility] BUN 9 8 - 23 mg/dL 07/01/2023 10:00 PM CDT [facility] CREATININE 0.90 0.70 - 1.20 mg/dL 07/01/2023 10:00 PM CDT [facility] BUN/CREAT RATIO 10 10 - 20 10:00 PM CDT [facility] eGFR 86(L) >90 mL/min/1.7 3m2 07/01/2023 10:00 PM CDT [facility] Comment:As of 2021, eG FR is calculated by the CKD-EPI creatinine equation without race adjustment. ??eGFR can be influenced by muscle mass, exercise, and diet. ??The reported eGFR is an estimation only and is only applicable if the renal function is stable. Blood BLOOD SPECIMEN / Unknown Venipuncture / Unknown 07/01/2023 3:12 PM CDT 07/01/2023 3:25 PM CDT Teresa Salazar DO CHEMISTRY [facility] [address] [place] [address], [place] from Last 3 Months Advance Directives Latest Code Status on File Code Status Date Activated Date Inactivated Comments Full Code 08/27/2020 9:23 AM 08/27/2020 4:42 PM Question Answer Comments Code Status Discussion: Not Discussed Code Status History Code Status Date Activated Date Inactivated Comments Full Code 02/20/2016 1:29 PM 02/26/2016 4:26 PM Full Code 02/20/2016 5:40 AM 02/20/2016 1:29 PM Full Code 11/27/2010 10:56 AM 11/28/2010 1:09 PM Care Teams Drain Technician Relationship Specialty Start Date End Date Teresa Salazar DO [address] [place] [address] PCP - General Family Practice 09/03/22 Oscar Taylor MD Allergy and Immunology 04/01/11 Raffaele Mcdowell MD Cardiology Cardiovascular Disease 03/07/12 Louis Aguilar MD Orthopedics Surgery - Orthopedics 04/03/13 Sylvie Zamora, KARLA [address] [place] [address] Complex Care Management Registered Nurse 08/26/23
--- OUTSIDE RECORDS SUMMARY | 2023-09-26 12:30 | XMS_ITS | Continuity of Care Document ---
Author Name Unknown Organization [facility] Address [address] [place] [address] Phone Care Team Providers Care Fashion Journalist Name Role Phone Leyla Acosta MD Unavailable Unavailable Allergies, Adverse Reactions, Alerts Substance Reaction Status Criticality venom-honey bee Active No Informati on Medications Medication Instructions Dosage Effective Dates (start - stop) Status Comments RIOMET (unknown strength) Not Available - Active AMARYL (unknown strength) Not Available - Active ATORVASTATIN CALCIUM (unknown strength) Not Available - Active LISINOPRIL (unknown strength) Not Available - Active DURLAZA (unknown strength) Not Available - Active FISH OIL (unknown strength) Not Available - Active VITAMIN-D + OMEGA-3 (unknown strength) Not Available - Active Procedures Procedure Date Office/Outpatient Visit,Est, Mod 2018 Office/Outpatient Visit,Est, Mod 2017 X-Ray Exam Of Neck Spine2-3 Views Office/Outpatient Visit,Est, Mod 2016 X-Ray Exam Of Neck Spine2-3 Views Postop Followup Visit X-Ray Exam Of Neck Spine2-3 Views Postop Followup Visit X-Ray Exam Of Neck Spine2-3 Views Neck Spine Fuse & Removal Addl 16 Addl Neck Spine Fusion Insert Spine Fix Dev, Ant, 2-3 Seg Allograft, Spine Surg, Structural Pa Neck Spine Fuse & Removal Addl Pa Addl Neck Spine Fusion Pa Assist Insert Spine Fix Dev, Ant, 2-3 Seg Office/Outpatient Visit,[place] 2015 Advance Directives Directive Yes / No Effective Date File Name No Information Encounters Encounter Description Practice Location Reason(s) For Visit Diagnoses Date Provider Providers Copied on Encounter [facility], [address], [place], [place], [id number] , [place] tel:[phone] [facility] No Information 3 Mehbod Amir. [facility] [place], [address] [place] [address] [address], [place], [place], [id number] , [place]. tel:[phone] Office/Outpa tient Visit,Est, Mod [facility], [address], [place], [place], [id number] , [place] tel: [phone] [facility] - [facility] Arthrodesis statusCervicalg ia 9 Mehbod Amir. [facility], [address] [place] [address] [address], [place], [place], [id number] , [place]. tel:[phone] Referring Provider: Louis Gomez, [facility] [address] [facility], [place], [address]. tel:[phone] Office/Outpa tient Visit,Est, Mod [facility], [address], [place], [place], [id number] , [place] [phone] [facility] [place] Paresthesia of skin 8 Mehbod Amir. [facility], [address], [place], [place], [id number] , [place]. [phone] Referring Provider: Louis Gomez, [facility] [address] [facility], [place], [address]. tel:[phone] Office/Outpa tient Visit,Est, Mod [facility], [address], [place], [place], [id number] , [place] [phone] [facility] - [place] Spinal stenosis, cervical regionArthrodes is status 0-201 7 Mehbod Amir. [facility], [address] [place] [address] [address], [place], [place], [id number] , [place]. [phone] Referring Provider: Louis Gomez, [facility] [address] [place] [address], [address]. [phone] [facility], [address], [place], [place], [id number] , [place] tel:[phone] [facility] Arthrodesis status 6 Tesfaye Randhawa. [address] [place] [address] [address], [place], [place], [id number] , [place]. tel:[phone] Referring Provider: Louis Gomez, [facility] [address] [place] [address], [address]. [phone] [facility], [address], [place], [place], [id number] , [place] tel:[phone] [facility] Cristiane Arthrodesis status 6 Mehbod Amir. [facility] [place], [address] [place] [address], [place], [place], [id number] , [place]. tel:[phone] Referring Provider: Louis Gomez, [facility] [address] [place] [address], [address]. tel:[phone] [facility], [address], [place], [place], [id number] , [place] [phone] [facility] No Information 6 Mehbod Amir. [facility] [place], [address] [place] [address] [address], [place], [place], [id number] , [place]. tel:[phone] Referring Provider: Louis Gomez, [facility] [address] [place] [address], [place], [address]. tel:[phone] Office/Outpa tient Visit,New, Mod [facility], [address], [place], [place], [id number] , [place] [phone] [facility] OverweightEssen tial (primary) hypertensionSpi nal stenosis, cervical regionOther cervical disc displacement, mid-cervical region 6 Karla Mayer. [facility], [address], [place], [place], [id number] , [place]. tel:[phone] Referring Provider: Louis Gomez, [facility] [address] , [place], [address]. tel:[phone] Family History Family Member Type Diagnosis Age At Onset No Information Payers Payer name Insurance type Covered democrat ID Authoriza tion(s) No Information Social History Type Description Quantity Date Captured Comments Alcohol Use Details Unknown Caffeine Use Details Unknown Tobacco Use Status No Information Smoking Status No Information Sex Male Chief Complaint And Reason For Visit No Information Reason For Referral Reason For Referral No Information Plan Of Treatment Date Type Action Status Future Order: Radiology Order AP Lateral Cervical (APlatcerv), Ordered on: Ordered Future Order: Radiology Order AP Lateral Cervical (APlatcerv), Ordered on: Ordered History Of Present Illness Encounter Date Complaint History Of Prese nt Illness No Information Functional Status Date Functional Assessmen t No Information Instructions Date Instruction Additional Infor doris Weight Management Education Rela rena to Overweight Weight management: I nstructed to return to General Practitioner timeframe: 1 Month. Related to Overweight Blood Pressure Management Relate d to Unspecified Essential Hypertension Instructed to return to General Practitioner timeframe: 1 Month. Related to Unspecified Essential Hypertension Weight Management Education Rela rena to Overweight Weight management: I nstructed to return to General Practitioner timeframe: 1 Month. Related to Overweight Blood Pressure Management Relate d to Unspecified Essential Hypertension Instructed to return to General Practitioner timeframe: 1 Month. Related to Unspecified Essential Hypertension Weight Management Education Rela rena to Overweight Weight management: I nstructed to return to General Practitioner timeframe: 1 Month. Related to Overweight Blood Pressure Management Relate d to Unspecified Essential Hypertension May-09-2016 Instructed to return to General Practitioner timeframe: 1 Month. Related to Unspecified Essential Hypertension Assessments Type Assessment Date No Information Patient Care Teams Name Effective Dates (start - stop) Status Members No Information
--- OUTSIDE RECORDS SUMMARY | 2023-09-26 12:30 | XMS_ITS | Clinical Summary ---
Author Name Unknown Organization [facility] Address [address] [place] [address] Care Team Providers Care Paintings Conservator Name Role Phone Unavailable Primary Care Provider Unavailabl e Source Comments Patient records contain information from all sites at [facility]. For routine questions regarding patient records, call [phone] during business hours, M-F 8:00 AM - 5:00 PM Central Time. Record requests for emergency care only can be directed to [phone] at any time.[facility] Allergies Active Allergy Reactions Criticality Noted Date Comments Bee Venom Protein (Honey Bee) Anaphylaxis 07/01 Medications Medication Sig Dispensed Refills Start Date End Date Status omega 5-igo-hxs-fish oil (fish oil) 100-160-1,000 mg capsule Take 1,000 mg by mouth daily. 0 04/25/2012 Active amLODIPine (NORVASC) 5 mg tablet Take 5 mg by mouth. 0 05/20/2020 Activ e hydroCHLOROthiazide (HYDRODIURIL) 25 mg tablet Take 25 mg by mouth. 0 05/26/2020 Acti ve finasteride (PROSCAR) 5 mg tablet Take 5 mg by mouth. 0 05/26/2020 Activ e tamsulosin (FLOMAX) 0.4 mg 24 hr capsule Take 0.4 mg by mouth. 0 09/04/2020 Act gita glimepiride (AMARYL) 2 mg tablet Take 0.5 mg by mouth. 0 05/26/2020 Act gita pantoprazole (PROTONIX) 40 mg EC tablet Take 40 mg by mouth. 0 10/02/2019 Acti ve aspirin [address] tablet Take 1 tablet by mouth daily. 0 07/01/2016 Active fexofenadine (ARCADIO) 180 mg tablet Take 180 mg by mouth. 0 10/02/2019 Act gita ascorbic acid, vitamin C, (VITAMIN C) 1,000 mg tablet Take 1,000 mg by mouth. 0 08/05/2020 Active metoprolol tartrate (LOPRESSOR) 25 mg tablet Take 25 mg by mouth. 0 08/27/2020 Acti ve metFORMIN (GLUCOPHAGE) 1,000 mg tablet Take 1,000 mg by mouth. 0 05/26/2020 Active acyclovir (ZOVIRAX) 400 mg tablet Take 400 mg by mouth 2 (two) times a day. 0 08/19/2020 Active lisinopriL (PRINIVIL,ZESTRIL) 20 mg tablet Take 20 mg by mouth 2 (two) times a day. 0 05/26/2020 Active atorvastatin (LIPITOR) 40 mg tablet Take 40 mg by mouth daily. 0 05/26/2020 Active multivitamin tablet Take 1 tablet by mouth. 0 01/03/2020 Active montelukast (SINGULAIR) 10 mg tablet Take 10 mg by mouth at bedtime. 0 Active budesonide (PULMICORT) 1 mg/2 mL nebulizer solution Inhale 1 mg by nebulization 2 (two) times a day as needed. 0 09/29/2021 Active cetirizine (ZyrTEC) 10 mg tablet Take 10 mg by mouth daily. 0 11/18/2021 Active ipratropium (ATROVENT) 42 mcg (0.06 %) nasal spray Administer 2 sprays into nostril(s) 3 (three) times a day. 0 09/29/2021 Active flecainide (TAMBOCOR) 50 mg tablet Take 50 mg by mouth every 12 (twelve) hours. 0 10/19/2021 Active ferrous sulfate (Slow Fe) 142 mg (45 mg iron) ER tablet Take 142 mg by mouth daily. 0 09/10/2021 Active lanolin ufjjsqx-kv-x.pet-ce res cream Apply topically. 0 11/18/2021 Active magnesium oxide (MAG-OX) 400 mg (241.3 mg magnesium) tablet Take 400 mg by mouth daily. 0 02/04/2021 Active mupirocin (BACTROBAN) 2 % ointment Apply 2 application topically 2 (two) times a day as needed. 0 09/29/2021 Active tiZANidine (ZANAFLEX) 4 mg tablet Take 4 mg by mouth 2 (two) times a day as needed. 0 12/22/2021 Active warfarin (COUMADIN) 5 mg tablet Take 5 mg by mouth daily. 0 12/29/2021 Active sodium chloride (OCEAN) 0.65 % nasal spray Administer 2 sprays into nostril(s). 0 02/08/2022 Active miscellaneous medical supply [facility] bPAP machine for home use at pressure: [...] Need: 99 months, Frequency of use: Daily 0 12/10/2020 Active OneTouch Ultra Test strips 2 (two) times a day. use for testing 0 01/20/2022 Active blood sugar diagnostic (OneTouch Ultra Test) strips Test 2 times/day. Dispense item covered by pt ins. 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 09/08/2020 Atrial Fibrillation Paroxysmal 09/08/2020 Pain Knee Left 08/14/2020 Overview: Added automatically from request for surgery [id number] Family History Medical History Relation Name Comments Anesthesia problems Neg Hx Social History Tobacco Use Types Packs/Day Years Used Date Smoking Tobacco: Unknown Smokeless Tobacco: Never Alcohol Use Standard Drinks/Week Comments Defer 0 (1 standard drink = 0.6 oz pur e alcohol) Nutrition Answer Date Recorded Nutrition: EVOO Fat Source Unknown 10/31 Nutrition: Servings of Fruits/Vegetables per Day Not on file 10/31/2020 Dental Answer Date Recorded Dental: Regular Dentist Unknown 11/01/19 21 Sex and Gender Information Value Date Recorded Sex Assigned at Not on file Gender Identity Male 10/14/2020 8:26 AM DIETETIC TECHNICIAN REGISTERED Sexual Orientation Straight 10/14/2020 8: 26 AM DIETETIC TECHNICIAN REGISTERED Last Filed Vital Signs Vital Sign Reading Time Taken Comments Blood Pressure 151/64 09/15/2020 6:00 PM DIETETIC TECHNICIAN REGISTERED Pulse 63 09/15/2020 6:15 PM DIETETIC TECHNICIAN REGISTERED Temperature 36 ??C (96.8 ??F) 09/15/2020 1:57 PM DIETETIC TECHNICIAN REGISTERED Respiratory Rate 16 09/15/2020 4:47 PM DIETETIC TECHNICIAN REGISTERED Oxygen Saturation 98% 09/15/2020 6:15 PM DIETETIC TECHNICIAN REGISTERED Inhaled Oxygen Concentration - - Weight 104 kg (230 lb 6.1 oz) 09/15/2020 1:57 PM DIETETIC TECHNICIAN REGISTERED Height 175.3 cm (5' 9) 08/14/2020 1:44 PM DIETETIC TECHNICIAN REGISTERED Body Mass Index 34.02 08/14/2020 1:44 PM DIETETIC TECHNICIAN REGISTERED Plan of Treatment Health Maintenance Due Date Last Done Comments Diabetic Office Visit with F oot Exam 1942 Hemoglobin A1C 1942 Office Visit for Blood Press ure Check / Re-check 1942 Urine Albumin 1942 Hepatitis B Vaccines (1 of 3 - Risk 3-dose series) 2002 Dilated Eye Exam 12/20/2017 12/20/2016, 10/2015, 07/01/2016 Creatinine Level (Kidney Fun ction Test) 12/22/2022 12/22/2021, 12/22/2021, 09/07/2021, Additional history exists Potassium Level 12/22/2022 12/22/2021, 08/29, 02/17/2021, Additional history exists Sodium Level 12/22/2022 12/22/2021, 08/29, 02/17/2021, Additional history exists DTaP,Tdap,and Td Vaccines (2 - Td or Tdap) 01/17/2023 01/17/2013, 10/27/2005 Depression Screening (Annual PHQ-2) 08/29/2023 Fall Risk Screen (Annual) 08/29/2023 Pneumococcal vaccine (65+ years) Completed 07/13/2016, 11/05/2011, 07/11/1997 Zoster Vaccines Completed 04/11/2019, 080 08/2018, 12/27/2018, Additional history exists Influenza Vaccine Completed 06/27/2023, , 09/07/2021, Additional history exists COVID-19 Vaccine Completed 08/25/2023, , 05/26/2021, Additional history exists Medical Devices Implanted Type Area Engineer System Administrator Device Identifier Shelf Expiration Date Model / Serial / Lot Conversions - Default Historical Implant Device Implanted:Qty: 4 on 11/24/2016 Hardware e.g. pins/screws /rods Neck Description:Body Location - Neck Mid. plus spine fused staple in cheek bone. Device Status Text - Hardware. Lens Madhu 19.0d X 6.0mm - Soto [id number] Implanted:Qty: 1 on 11/24/2016 Ocular Lens Other/Legacy - See Implant Description Madhu Pick a Student Description:Device Manufactu rer - [employer]. Body Location - Other. Right. Device Status Text - [id number].
--- OUTSIDE RECORDS SUMMARY | 2023-09-26 12:31 | XMS_ITS | Encounter Summary ---
Author Name Unknown Organization [facility] Address [address] [place] [address] Care Team Providers Care Crew Leader Gluing Name Role Phone Unavailable Primary Care Provider Unavailabl e Encounter Details Date Type Department Care Team (Late st Contact Info) Description 12/20/2016 Historical Ophthalmology [facility] Alex Anthony M.D. [address] [place] [address] Social History Tobacco Use Types Packs/Day Years Used Date Smoking Tobacco: Never Assessed Sex and Gender Information Value Date Recorded Sex Assigned at Not on file Gender Identity Male 10/14/2020 8:26 AM FELT CHECKER Sexual Orientation Straight 10/14/2020 8: 26 AM FELT CHECKER documented as of this encounter Progress Notes * Alex Anthony M.D. - 12/20/2016 11:50 AM CDT Eye General CHIEF COMPLAINT PO Follow up IOL right eye HISTORY OF PRESENT ILLNESS Patient denies ocular pain. Patient states that vision has continued to improve. IMPRESSION / REPORT / PLAN Consult requested by: Liudmila Samaniego M.D. #1 s/p Cataract surgery with intraocular lens implant, right eye. Doing well. Discontinue postoperative drops as previously instructed. Spectacle Rx given. 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 ACV to 400 mg BID for prophylaxis. Follow-up with Dr. Samaniego DIAGNOSIS #1 s/p Cataract surgery with intraocular lens implant, right eye. #2 Blind left eye #3 Corneal scar, right eye CDM Reports - EYEGEN Id: [id number] Status: Fnl documented in this encounter Plan of Treatment Not on file documented as of this encounter Visit Diagnoses Not on filedocumented in this encounter Additional Health Concerns Infection Onset Date Last Indicated Resolved Time COVID19 Pending 09/11/2020 09/11/2020 09/12/2020 3 :34 PM FELT CHECKER documented as of this encounter
--- OUTSIDE RECORDS SUMMARY | 2023-09-26 12:31 | XMS_ITS | Encounter Summary ---
Author Name Unknown Organization [facility] Address [address] [place] [address] Care Team Providers Care Communication Specialist Name Role Phone Unavailable Primary Care Provider Unavailabl e Encounter Details Date Type Department Care Team (Late st Contact Info) Description 11/23/2016 Historical Ophthalmology [facility]ST O[facility] Shanell Templeton, C.O.T. Social History Tobacco Use Types Packs/Day Years Used Date Smoking Tobacco: Never Assessed Sex and Gender Information Value Date Recorded Sex Assigned at Not on file Gender Identity Male 10/14/2020 8:26 AM MANAGER PHOTO Sexual Orientation Straight 10/14/2020 8: 26 AM MANAGER PHOTO documented as of this encounter Progress Notes * Shanell Templeton, C.O.T. - 11/23/2016 2:51 PM CDT Eye Subsequent Visit HISTORY OF PRESENT ILLNESS listing CDM Reports - EYESV Id: [id number] Status: Fnl documented in this encounter Plan of Treatment Not on file documented as of this encounter Visit Diagnoses Not on filedocumented in this encounter Additional Health Concerns Infection Onset Date Last Indicated Resolved Time COVID19 Pending 09/11/2020 09/11/2020 09/12/2020 3 :34 PM MANAGER PHOTO documented as of this encounter
--- OUTSIDE RECORDS SUMMARY | 2023-09-26 12:31 | XMS_ITS | Encounter Summary ---
Author Name Unknown Organization [facility] Address [address] [place] [address] Care Team Providers Care Technical Support Associate Name Role Phone Unavailable Primary Care Provider Unavailabl e Encounter Details Date Type Department Care Team (Late st Contact Info) Description 11/24/2016 Historical Ophthalmology RST O[facility] Alex Anthony M.D. [address] [place] [address] Social History Tobacco Use Types Packs/Day Years Used Date Smoking Tobacco: Never Assessed Sex and Gender Information Value Date Recorded Sex Assigned at Not on file Gender Identity Male 10/14/2020 8:26 AM PLATE SENSITIZER Sexual Orientation Straight 10/14/2020 8: 26 AM PLATE SENSITIZER documented as of this encounter Progress Notes * Alex Anthony M.D. - 11/24/2016 2:50 PM CDT Eye General CHIEF COMPLAINT S/p Right cataract extraction with intraocular lens implant - same day HISTORY OF PRESENT ILLNESS Patient notes slight soreness in the right eye. IMPRESSION / REPORT / PLAN Consult requested by: Liudmila Samaniego M.D. #1 s/p Cataract surgery with intraocular lens implant, right eye. Doing well. Moxifloxacin 0.5%, 1 drop 4x/day for 1 week into operative eye. Prednisolone acetate 1% 4x/day, then taper by 1drop/day each week into operative eye as per writteninstructions. Wear shield at night and glasses during the day. Call if decreased vision, increased photophobia, pain, discharge or increased redness occurs. 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 Discussed periop management. Increase ACV to 800 mg BID for surgery. DIAGNOSIS #1 s/p Cataract surgery with intraocular lens implant, right eye. 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
--- OUTSIDE RECORDS SUMMARY | 2023-09-26 12:31 | XMS_ITS | Continuity of Care Document ---
Author Name Unknown Organization [facility] Address [address] [place] [address] Phone Care Team Providers Care Toolmaker Name Role Phone Leyla Acosta MD Unavailable [...] on Encounter [facility], [address], [place], [place], [id number] , [place] tel:[phone] [facility] No Information 3 Mehbod Amir. [facility] [place], [address] [place] [address] [address], [place], [place], [id number] , [place]. tel: [phone] Office/Outpa tient Visit,Est, Mod [facility], [address], [place], [place], [id number] , [place] tel: [phone] [facility] - [facility] Arthrodesis statusCervicalg ia [address] [facility], [address] [place] [address] [address], [place], [place], [id number] , [place]. tel:[phone] Referring Provider: Louis Gomez, [facility] [address] [facility], [place], [address]. tel:[phone] Office/Outpa tient Visit,Est, Mod [facility], [address], [place], [place], [id number] , [place] [phone] [facility] - [place] Paresthesia of skin [address] [facility], [address], [place], [place], [address] , [place]. [phone] Referring Provider: Louis Gomez, [facility] [address] [facility], [place], [address]. tel:[phone] Office/Outpa tient Visit,Est, Mod [facility], [address], [place], [place], [id number] , [place] [phone] [facility] - [place] Spinal stenosis, cervical regionArthrodes is status 0-201 7 Mehbod Amir. [facility], [address] [place] [address] [address], [place], [place], [id number] , [place]. [phone] Referring Provider: Louis Gomez, [facility] [address] [place] [address], [address]. [phone] [facility], [address], [place], [place], [id number] , [place] tel:[phone] [facility] Arthrodesis status 6 Tesfaye Randhawa. [address] [place] [address] [address], [place], [place], [id number] , [place]. tel:[phone] Referring Provider: Louis Gomez, [facility] [address] [place] [address], [address]. [phone] [facility], [address], [place], [place], [id number] , [place] tel:[phone] [facility] Cristiane Arthrodesis status 6 Mehbod Amir. [facility] [place], [address] [place] [address], [place], [place], [id number] , [place]. tel:[phone] Referring Provider: Louis Gomez, [facility] [address] [place] [address], [address]. tel:[phone] [facility], [address], [place], [place], [id number] , [place] [phone] [facility] No Information 6 Mehbod Amir. [facility] [place], [address] [place] [address] [address], [place], [place], [id number] , [place]. tel:[phone] Referring Provider: Louis Gomez, [facility] [address] [place] [address], [place], [address]. tel:[phone] Office/Outpa tient Visit,New, Mod [facility], [address], [place], [place], [id number] , [place] [phone] [facility] OverweightEssen tial (primary) hypertensionSpi nal stenosis, cervical regionOther cervical disc displacement, mid-cervical region 6 Karla Mayer. [facility], [address], [place], [place], [id number] , [place]. tel:[phone] Referring Provider: Louis Gomez, [facility] [address] , [place], [address]. tel:[phone] Family History Family Member Type Diagnosis Age At Onset No Information Payers Payer name Insurance type Covered constitution party ID Authoriza tion(s) No Information Social History [...]
--- OUTSIDE RECORDS SUMMARY | 2023-09-26 12:31 | XMS_ITS ---
Author Name Unknown Organization [facility] Address [address] [place] [address] Care Team Providers Care Wellness Nurse Name Role Phone Unavailable Unavailable Unavailable Surgery Details Not on file Complications Check Surgery Details section. Procedure Estimated Blood Loss Check Surgery Details section. Procedure Findings Check Surgery Details section. Procedure Specimens Taken Check Surgery Details section.
--- OUTSIDE RECORDS SUMMARY | 2023-09-26 12:31 | XMS_ITS | Encounter Summary ---
Author Name Unknown Organization [facility] Address [address] [place] [address] Care Team Providers Care Hospital Medicine Director Name Role Phone Unavailable Primary Care Provider Unavailabl e Encounter Details Date Type Department Care Team (Late st Contact Info) Description 11/25/2016 Historical Ophthalmology RST OPH Alex Anthony M.D. [address] [place] [address] Social History Tobacco Use Types Packs/Day Years Used Date Smoking Tobacco: Never Assessed Sex and Gender Information Value Date Recorded Sex Assigned at Not on file Gender Identity Male 10/14/2020 8:26 AM CONSTRUCTION SALES REPRESENTATIVE Sexual Orientation Straight 10/14/2020 8: 26 AM CONSTRUCTION SALES REPRESENTATIVE documented as of this encounter Progress Notes * Alex Anthony M.D. - 11/25/2016 7:29 AM CDT Eye General CHIEF COMPLAINT S/P IOL right eye - one day return HISTORY OF PRESENT ILLNESS Patient back today for his 1 day post-op return. Notes a FB sensation in the outer corner of the right eye. IMPRESSION / REPORT / PLAN Consult requested by: Liudmila Samaniego M.D. #1 s/p Cataract surgery with intraocular lens implant, right eye. Doing well. Ofloxacin, 1 drop 4x/day for 1 week into operative eye. Prednisolone acetate 1% 4x/day, then taper by 1drop/day each week into operative eye as per writteninstructions. Wear shield at night and glasses during the day. Call if decreased vision, increased photophobia, pain, discharge or increased redness occurs. Instruction pamphlet given, Care following cataract surgery ( 9365-07). Follow-up in 1 week. 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 Discussed periop management. Increase ACV to 800 mg BID for surgery. DIAGNOSIS #1 s/p Cataract surgery with intraocular lens implant, right eye. 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
--- OUTSIDE RECORDS SUMMARY | 2023-09-26 12:31 | XMS_ITS | Encounter Summary ---
Author Name Unknown Organization [facility] Address [address] [place] [address] Care Team Providers Care Production Drilling Machine Operator Name Role Phone Unavailable Primary Care Provider Unavailabl e Encounter Details Date Type Department Care Team (Late st Contact Info) Description 07/01/2016 Historical Ophthalmology RST OPH Alex Anthony M.D. [address] [place] [address] Social History Tobacco Use Types Packs/Day Years Used Date Smoking Tobacco: Never Assessed Sex and Gender Information Value Date Recorded Sex Assigned at Not on file Gender Identity Male 10/14/2020 8:26 AM CONTINGENTS SUPERVISOR Sexual Orientation Straight 10/14/2020 8: 26 AM CONTINGENTS SUPERVISOR documented as of this encounter Progress Notes * Alex Anthony M.D. - 07/01/2016 8:32 AM CDT Eye General CHIEF COMPLAINT Cataract HISTORY OF PRESENT ILLNESS Blurred vision; both eyes; x several months; constantly. Floaters alone; both eyes (R > L); x several months; constantly. LIQUOR GALLERY OPERATOR: Poor vision left eye for years with no meaningful vision. Blurred vision right eye for severalmonths; constantly, moderate. History of HSV right eye....last flare 2-3 years ago, and currently on no treatment. IMPRESSION / REPORT / PLAN Consult requested by: Liudmila Samaniego M.D. #1 Cataract, right eye Visually significant. Plan: could consider cataract surgery right eye; discussed risks and consequences in detail, including slight increased risk because of corneal scarring. He will think about it and call if wants to schedule. Get IOLs. 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 Discussed periop management. Recommend ACV 400 mg BID prophylaxis regardless of surgery. 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
--- OUTSIDE RECORDS SUMMARY | 2023-09-26 12:31 | XMS_ITS | Continuity of Care Document ---
Author Name Unknown Organization [facility] Address [address] [place] [address] Phone Care Team Providers Care Press Puller Name Role Phone Agny VALENTE MD, Bipin Unavailable Unavailable Advance Directives Directive Yes / No Effective Date File Name No Information Encounters Encounter Description Practice Location Reason(s) For Visit Diagnoses Date Provider Providers Copied on Encounter [facility], [address], [place], [place], [id number], [place] tel:[phone] No Information [address] Voss. [address], [place], [address], [place]. tel:[phone] Referring Provider: Bipin Butt, [address] [place], [place], [facility]. tel:[phone] Family History Family Member Type Diagnosis Age At Onset No Information Payers Payer name Insurance type Covered democrat ID Authoriza tion(s) AAR Medicare Complete CI [id number] Social History Type Description Quantity Date Captured [...]
--- OUTSIDE RECORDS SUMMARY | 2023-09-26 12:31 | XMS_ITS | Referral Summary ---
Author Name Unknown Organization [facility] Address [address] [place] [address] Care Team Providers Care Textile Artist Name Role Phone Unavailable Primary Care Provider Unavailabl e Source Comments Patient records contain information from all sites at [facility]. For routine questions regarding patient records, call [phone] during business hours, M-F 8:00 AM - 5:00 PM Central Time. 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 0 09/10/2021 Active lanolin sgqfmjo-yu-g.pet-ce res cream Apply topically. 0 11/18/2021 Active [...] nostril(s). 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 09/08/2020 Atrial Fibrillation Paroxysmal 09/08/2020 Pain Knee Left 08/14/2020 Overview: Added automatically from request for surgery [id number] Social History Tobacco Use Types Packs/Day Years [...] file Gender Identity Male 10/14/2020 8:26 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 Sexual Orientation Straight 10/14/2020 8: 26 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 Last Filed Vital Signs Vital Sign Reading Time Taken Comments Blood Pressure 151/64 09/15/2020 6:00 PM DRILLING MACHINE OPERATOR Pulse 63 09/15/2020 6:15 PM DRILLING MACHINE OPERATOR Temperature 36 ??C (96.8 ??F) 09/15/2020 1:57 PM DRILLING MACHINE OPERATOR Respiratory Rate 16 09/15/2020 4:47 PM DRILLING MACHINE OPERATOR Oxygen Saturation 98% 09/15/2020 6:15 PM DRILLING MACHINE OPERATOR Inhaled Oxygen Concentration - - Weight 104 kg (230 lb 6.1 oz) 09/15/2020 1:57 PM DRILLING MACHINE OPERATOR Height 175.3 cm (5' 9) 08/14/2020 1:44 PM DRILLING MACHINE OPERATOR Body Mass Index 34.02 08/14/2020 1:44 PM DRILLING MACHINE OPERATOR Plan of Treatment Not on file Medical Devices Implanted Type Area Csr Technician Device Identifier Shelf Expiration Date Model / Serial / Lot Conversions - Default Historical Implant Device Implanted:Qty: 4 on 11/24/2016 Hardware e.g. pins/screws /rods Neck Description:Body Location - Neck Mid. plus spine fused staple in cheek bone. Device Status Text - Hardware. Lens Madhu 19.0d X 6.0mm - Soto [id number] Implanted:Qty: 1 on 11/24/2016 Ocular Lens Other/Legacy - See Implant Description [employer] Description:Device Manufactu rer - [employer]. Body Location - Other. Right. Device Status Text - [id number].
--- OUTSIDE RECORDS SUMMARY | 2023-09-26 12:31 | XMS_ITS | Encounter Summary ---
Author Name Unknown Organization [facility] Address [address] [place] [address] Care Team Providers Care Valve Pipe Irrigator Name Role Phone Unavailable Primary Care Provider Unavailabl e Encounter Details Date Type Department Care Team (Late st Contact Info) Description 12/01/2016 Historical Ophthalmology [facility] Alex Anthony M.D. 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 - 12/01/2016 9:03 AM CDT Eye General CHIEF COMPLAINT S/p Right cataract extraction with intraocular lens implant HISTORY OF PRESENT ILLNESS Patient denies ocular pain. Patient states that he thinks he may have seen flashes of light this morning in the right eye. IMPRESSION / REPORT / PLAN Consult requested by: Liudmila Samaniego M.D. #1 s/p Cataract surgery with intraocular lens implant, right eye. Doing well. D/c Ofloxacin Prednisolone acetate 1% 3x/day, then taper by 1drop/day each week into operative eye as per writteninstructions. Call if decreased vision, increased photophobia, pain, discharge or increased redness occurs. Follow-up in 3 weeks. 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 Discussed periop management. Decrease ACV to 400 mg BID for prophylaxis. DIAGNOSIS #1 s/p Cataract surgery with intraocular lens implant, right eye. 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
--- OUTSIDE RECORDS SUMMARY | 2023-09-26 12:31 | XMS_ITS | Encounter Summary ---
Author Name Unknown Organization [facility] Address [address] [place] [address] Care Team Providers Care Laborer Petroleum Refinery Name Role Phone Unavailable Primary Care Provider Unavailabl e Encounter Details Date Type Department Care Team (Late st Contact Info) Description 11/23/2016 Historical Ophthalmology [facility] Alex Anthony M.D. [address] [place] [address] Social History Tobacco Use Types Packs/Day Years Used Date Smoking Tobacco: Never Assessed Sex and Gender Information Value Date Recorded Sex Assigned at Not on file Gender Identity Male 10/14/2020 8:26 AM BASS FISHER Sexual Orientation Straight 10/14/2020 8: 26 AM BASS FISHER documented as of this encounter Progress Notes * Alex Anthony M.D. - 11/23/2016 1:23 PM CDT Eye General CHIEF COMPLAINT Here for listing for cataract surgery HISTORY OF PRESENT ILLNESS Patient states that there are no vision changes, Patient denies ocular pain. Patient denies any further concerns at this time. IMPRESSION / REPORT / PLAN Consult requested by: Liudmila Samaniego M.D. #1 Cataract, right eye Visually significant. Discussed options, especially given blind left eye. Plan: Cataract surgery, right eye Cataract surgery was discussed in detail with the patient (or legal member service representative and others present during the discussion), including the risks, goals, alternatives, advanced directives, and potential complications. Patient verbalizes understanding and wishes to proceed with cataract surgery and p robable intraocular lens implantation right eye (OD). Will aim for near emmetropia. Will proceed under local anesthesia. Discussed increased risk given no meaningful vision in left eye. 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 Discussed periop management. Increase ACV to 800 mg BID for surgery. 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
--- NOTE | 2023-09-26 12:35 | ED_ITS ---
HPI - General Adult General Date Seen: 09/26/23 Chief complaint: Abdominal Pain Stated complaint: R stomach pain Time Seen by Provider: 09/26/23 12:11 Source: patient, family, RN notes reviewed and old records reviewed Mode of arrival: ambulatory Limitations: no limitations History of Present Illness HPI narrative: Patient is an 83-year-old male here with his for evaluation of abdominal pain which started 2 days ago, on Tuesday. It has always been more on the right side of the abdomen, associated with some anorexia, mild nausea but no vomiting. He did have 2 normal bowel movements yesterday. No black or bloody stools. He denies fevers or chills. He has had a ventral hernia repair but denies other abdominal surgeries. Pain started overnight Tuesday and has been worsening since then. He did have some cream of mushroom soup a few hours prior to coming in. He denies urinary symptoms. He has not taken anything at home for pain. Does not smoke or drink. Other medical history reviewed, includes hypertension, diabetes. Colonoscopy in June of 2022 showed a couple of small polyps, a few diverticuli in the sigmoid colon, otherwise unremarkable. He is not aware of a prior history of diverticulitis. Related Data Home Medications Medication Instructions Recorded Confirmed acyclovir 400 mg tablet 400 mg PO BID 09/26/23 09/26/23 amlodipine 5 mg tablet 5 mg PO BID 09/26/23 09/26/23 ascorbic acid (vitamin C) 1,000 mg 1 g PO DAILY 09/26/23 09/26/23 tablet atorvastatin 40 mg tablet 40 mg PO HS 09/26/23 09/26/23 carvedilol 12.5 mg tablet 18.75 mg PO BIDWM 09/26/23 09/26/23 clonidine HCl 0.1 mg tablet 0.1 mg PO BID 09/26/23 09/26/23 ferrous sulfate, dried 159 mg (45 159 mg PO DAILY 09/26/23 09/26/23 mg iron) tablet,extended release (iron ER) fexofenadine 180 mg tablet 180 mg PO DAILY 09/26/23 09/26/23 (Danii Allergy) finasteride 5 mg tablet 5 mg PO DAILY 09/26/23 09/26/23 flecainide 50 mg tablet 50 mg PO Q12H 09/26/23 09/26/23 glimepiride 2 mg tablet 1 mg PO .DAILYWM 09/26/23 09/26/23 lisinopril 20 mg tablet 20 mg PO BID 09/26/23 09/26/23 magnesium 200 mg tablet 200 mg PO DAILY 09/26/23 09/26/23 metformin 1,000 mg tablet 1,000 mg PO BIDWM 09/26/23 09/26/23 montelukast 10 mg tablet 10 mg PO HS 09/26/23 09/26/23 omega [id number]-fish oil 1,000 mg 1 cap PO DAILY 09/26/23 09/26/23 (120 mg-180 mg) capsule (Fish Oil) pantoprazole 40 mg tablet,delayed 40 mg PO DAILY 09/26/23 09/26/23 release tamsulosin 0.4 mg capsule 0.4 mg PO DAILY 09/26/23 09/26/23 warfarin 5 mg tablet 7.5 - 10 mg PO DAILY 09/26/23 09/26/23 Allergies Allergy/AdvReac Type Severity Reaction Status Date / Time No Known Drug Allergies Allergy Verified 09/26/23 12:09 Review of Systems Status of ROS: Reports: 10 or more systems reviewed and unremarkable except as noted in History and below [facility] Medical History (Updated 09/27/23 @ 14:44 by Amberly Torres MD) History of electrophysiologic study ?Z98.890 - Other specified postprocedural states (ICD-10) Arthritis of carpometacarpal (CMC) joint of left thumb ?M18.12 - Unilateral primary osteoarthritis of first carpometacarpal joint, left hand (ICD-10) Cervical radiculopathy ?M54.12 - Radiculopathy, cervical region (ICD-10) Chronic neck pain ?M54.2 - Cervicalgia (ICD-10) ?G89.29 - Other chronic pain (ICD-10) 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, unspecified ?D55.9 - 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, unspecified (ICD-10) Pacemaker ?Z95.0 - Presence of cardiac pacemaker (ICD-10) Anticoagulation monitoring, INR range 2-3 ?Z79.01 - care home (current) use of anticoagulants (ICD-10) Paroxysmal atrial fibrillation ?I48.0 - Paroxysmal atrial fibrillation (ICD-10) Anemia ?D64.9 - Anemia, unspecified (ICD-10) Osteoarthritis ?M19.90 - Unspecified osteoarthritis, unspecified site (ICD-10) Chronic diastolic heart failure ?I50.32 - Chronic diastolic (congestive) heart failure (ICD-10) Cervical herniated disc ?M50.20 - Other cervical disc displacement, unspecified cervical region (ICD- 10) Essential hypertension ?I10 - Essential (primary) hypertension (ICD-10) Adenomatous colon polyp ?D12.6 - Benign neoplasm of colon, unspecified (ICD-10) Vitamin B12 deficiency ?E53.8 - Deficiency of other specified B group vitamins (ICD-10) Hepatic steatosis ?K76.0 - Fatty (change of) liver, not elsewhere classified (ICD-10) Chronic meniscal tear of knee ?M23.209 - Derangement of unspecified meniscus due to old tear or injury, unspecified knee (ICD-10) Frequent PVCs ?I49.3 - Ventricular premature depolarization (ICD-10) Stenosing tenosynovitis of finger of left hand ?M65.842 - Other synovitis and tenosynovitis, left hand (ICD-10) Bilateral sensorineural hearing loss ?H90.3 - Sensorineural hearing loss, bilateral (ICD-10) Obstructive sleep apnea on CPAP ?G47.33 - Obstructive sleep apnea (adult) (pediatric) (ICD-10) Diabetes mellitus type 2 in obese ?E11.69 - Type 2 diabetes mellitus with other specified complication (ICD-10) ?E66.9 - Obesity, unspecified (ICD-10) Dyslipidemia ?E78.5 - Hyperlipidemia, unspecified (ICD-10) Severe obesity ?E66.01 - Morbid (severe) obesity due to excess calories (ICD-10) Chronic bilateral low back pain without sciatica ?M54.50 - Low back pain, unspecified (ICD-10) ?G89.29 - Other chronic pain (ICD-10) Benign prostatic hyperplasia ?N40.0 - Benign prostatic hyperplasia without lower urinary tract symptoms (ICD-10) Supraventricular tachycardia ?I47.10 - Supraventricular tachycardia, unspecified (ICD-10) Surgical History History of nasal septoplasty ?Z98.890 - Other specified postprocedural states (ICD-10) History of permanent cardiac pacemaker placement ?Z95.0 - Presence of cardiac pacemaker (ICD-10) History of hernia repair ?Z98.890 - Other specified postprocedural states (ICD-10) ?Z87.19 - Personal history of other diseases of the digestive system (ICD-10) History of radiofrequency ablation procedure for cardiac arrhythmia ?Z98.890 - Other specified postprocedural states (ICD-10) History of carpal tunnel surgery of right wrist ?Z98.890 - Other specified postprocedural states (ICD-10) History of carpal tunnel surgery of left wrist ?Z98.890 - Other specified postprocedural states (ICD-10) Family History Mother Blood disease Heart disease Sister Ovarian cancer Diabetes Brother Colon cancer Father Diabetes Heart disease Social History (Updated 09/27/23 @ 09:00 by Sweta Soni MD) Narrative: Lives with his . He does not smoke. He does not drink alcohol. What is your current living situation?: I presently have a place to live Problems where you live: no known problems Problems where you live details: N/A In the past 12 months, utilities in danger of being shut off: no In past 12 months, lack of transportation kept you from medical appts, meetings, work, or getting things needed for daily living: no In the past 12 mos, have been you worried that your food would run out before you had money to buy more?: never true In the past 12 mos, the food you bought just didn't last and you didn't have money to buy more?: never true Highest level of school completed/degree received: some college, no degree Smoking Status: Former smoker Second hand tobacco smoke exposure: No How often do you have a drink containing alcohol: never How often do you have six or more drinks on one occasion: Never AUDIT-C Alcohol total score: 0 Non-prescribed substance use: denies use Caffeine: Yes How often does anyone, including family, friends and others, physically hurt you : never How often does anyone, including family, friends and others, insult or talk down to you: never How often does anyone, including family, friends and others, threaten you with harm: never How often does anyone, including family, friends and others, scream or curse at you: never service: No Exam Narrative: Exam Narrative: Vital signs as noted above. In general, an alert, nontoxic elderly male. He does look somewhat uncomfortable. Head: Normocephalic, atraumatic. Eyes: Pupils are equal reactive. Extraocular movements are full. Conjunctivae are normal. ENT: Mucous membranes are moist. Delete Neck: Supple without lymphadenopathy. Heart: Regular rate and rhythm. No murmur or rub. Lungs: Clear bilaterally. No increased work of breathing, crackles or wheezes. No CVA tenderness peer Abdomen: Abdomen is large, he has an umbilical hernia which is small and reducible. He has tenderness in the right abdomen, seems to be more mid and lower right abdomen although he does have some tenderness in the right upper quadrant as well and has a positive Rayo sign. Left abdomen is nontender. No rebound guarding or rigidity. Abdominal girth limits exam. Extremities: Well perfused. No edema. No calf tenderness. Pulses intact. Neurologic: Patient is alert and oriented to person and place. Speech is fluent. Face is symmetric. Moves all extremities equally. Affect: Normal. Skin: Warm and dry. Well perfused. Const: Vital Signs, click to edit/add: Vital Signs - 24 hr 09/27/23 11:05 Temperature 97.8 F Pulse Rate [Right Pulse Oximeter] 65 Respiratory Rate 16 Blood Pressure [Ri ght Arm] 125/76 Pulse Oximetry 94 Oxygen Delivery Me thod Room Air Documenting provider has reviewed patient's vital signs: yes Course Course ED Course: I did do a right upper quadrant ultrasound briefly, his gallbladder looks somewhat contracted, and I was not able to see it well. There was a little bit of shadowing, suggesting that he does have some small stones in the gallbladder. He does not have a sonographic Rayo's. Overall, I think a CT scan would provide the most information as I think appendicitis or diverticulitis are also possibilities in his case. Labs are ordered, will give some morphine for pain control as well as some Zofran and 500 mL of normal saline. Will check LFTs and lipase for consideration of pancreatitis or cholecystitis. Thus far, evaluation is fairly unrevealing. White blood cell count is normal at 7.7, very minimal left shift with 75% neutrophils. Hemoglobin and platelets are normal. Metabolic panel is normal, lactate is 1.8. LFTs are normal. CRP minimally elevated at 2.5. Lipase is normal at 94, urinalysis is negative. CT scan by my review showed a fair amount of stool in the right colon, I did not see any inflammatory changes, did not see evidence of appendicitis, hydronephrosis, diverticulitis. Final radiology read as follows:FINDINGS: Lower chest: Partially visualized dual chamber pacemaker leads. Minimal dependent atelectasis. Liver: Unremarkable. Normal in size and attenuation. No suspicious masses. Gallbladder and bile ducts: Multiple small gallstones within the gallbladder neck and body. No pericholecystic inflammatory change or biliary ductal dilation. Pancreas: Unremarkable. No mass or inflammation. Spleen: Unremarkable. Normal in size. No masses. Adrenal glands: Unremarkable. No nodules. Kidneys: Symmetric renal enhancement. No hydronephrosis. Punctate low right interpolar renal calculus. No ureteral calculi. GI tract: Nonobstructed bowel. Moderate colonic fecal burden. Scattered descending and sigmoid colon diverticula without findings of diverticulitis. The appendix is not definitively visualized. No inflammatory changes at the cecal pole to suggest appendicitis. Mesenteric he haziness in the mid abdomen with scattered subcentimeter lymph nodes. Vasculature: Abdominal aorta is normal in caliber. Lymph nodes: No lymphadenopathy. Peritoneum/Abdominal Wall: Unremarkable. No sign of mass or infiltration. No free air or significant free fluid. Pelvis: Unremarkable. Bones: Osseous demineralization. Moderate bilateral hip osteoarthritis. Severe degenerative changes of the left L5-S1 facet and irregularity of the left posterior ilium, which may be from prior bone graft harvest site. There are laminectomy changes at L4-L5 with interbody graft. Additionally, there are laminectomy changes at L1-L3 with chronic nondisplaced fractures of bilateral L2 inferior articular processes with similar trace anterolisthesis of L2 on L3. Multilevel degenerative disc disease involving the thoracolumbar spine with evidence of diffuse idiopathic skeletal hyperostosis. IMPRESSION: 1. No acute abnormality identified to explain the patient`s right-sided abdominal pain. 2. Chronic incidental findings including cholelithiasis, diverticulosis and right nephrolithiasis. 3. 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 I elected to do a formal abdominal ultrasound given that he does have gallstones and I at this time do not have a clear explanation for his pain. This is pending at this time. Ultrasound is suspicious for cholecystitis. Discussed with Surgery and Hospitalist. Admitted for definitive care. Had a second dose of Morphine as pain was increasing. Vital Signs Vital signs: Initial Vital Signs Temperature 98.0 F 09/26/23 12:05 Temperature Source Temporal Artery Scan 09/26/23 12:05 Pulse Rate 69 09/26/23 12:05 Pulse Rhythm Regular 09/26/23 12:05 Respiratory Rate 18 09/26/23 12:05 Pulse Oximetry 96 09/26/23 12:05 Oxygen Delivery Method Room Air 09/26/23 12:05 Vital Signs Temperature 98.0 F 09/26/23 12:05 Pulse Rate 69 09/26/23 12:05 Respiratory Rate 18 09/26/23 12:05 Pulse Oximetry 96 09/26/23 12:05 Oxygen Delivery Method Room Air 09/26/23 12:05 Temperature 97.5 F L 09/28/23 02:51 Pulse Rate 69 09/28/23 02:51 Respiratory Rate 17 09/28/23 02:51 Blood Pressure 128/67 09/28/23 02:51 Pulse Oximetry 95 09/28/23 02:51 Oxygen Delivery Method [place] Nasal Cannula 09/28/23 02:51 Oxygen Flow Rate 1.5 09/28/23 02:51 Medications Administered Medications: Generic Name Dose Route Start Last Admin Trade Name Freq PRN Reason Stop Dose Admin Acyclovir 400 mg 09/26/23 21:00 09/28/23 08:31 Acyclovir 200 Mg Capsule PO 400 mg BID GIBRAN Administration Amlodipine Besylate 5 mg 09/26/23 21:00 09/28/23 08:31 Amlodipine 5 Mg Tablet PO 5 mg BID GIBRAN Administration Ascorbic Acid 1,000 mg 09/27/23 09:00 09/28/23 08:31 Ascorbic Acid 500 Mg Tablet PO 1,000 mg DAILY GIBRAN Administration Atorvastatin Calcium 40 mg 09/26/23 21:00 09/27/23 22:51 Atorvastatin Calcium 40 Mg Tablet PO 40 mg HS GIBRAN Administration Carvedilol 18.75 mg 09/26/23 18:17 09/28/23 08:32 Carvedilol 6.25 Mg Tablet PO 18.75 mg BIDWM GIBRAN Administration Clonidine HCl 0.1 mg 09/26/23 21:00 09/28/23 08:31 Clonidine Hcl 0.1 Mg Tablet PO 0.1 mg BID GIBRAN Administration Finasteride 5 mg 09/27/23 09:00 09/28/23 08:31 Finasteride 5 Mg Tablet PO 5 mg DAILY GIBRAN Administration Flecainide Acetate 50 mg 09/26/23 21:00 09/28/23 08:30 Flecainide Acetate 50 Mg Tablet PO 50 mg BID GIBRAN Administration Lactated Ringer's 1,000 mls @ 125 mls/hr 09/27/23 18:30 09/28/23 02:55 Lactated Ringers 1000 Ml IV 125 mls/hr .Q8H GIBRAN Administration Insulin Aspart 0 unit 09/27/23 18:45 09/28/23 08:33 Insulin Aspart 100 Unit/Ml SUBCUT 4 unit ACHS GIBRAN Administration Protocol Lisinopril 20 mg 09/26/23 21:00 09/28/23 08:32 Lisinopril 20 Mg Tablet PO 20 mg BID GIBRAN Administration Metformin HCl 1,000 mg 09/26/23 18:17 09/28/23 08:31 Metformin 1,000 Mg Tablet PO 1,000 mg BIDWM GIBRAN Administration Montelukast Sodium 10 mg 09/26/23 21:00 09/27/23 22:52 Montelukast 10 Mg Tablet PO 10 mg HS GIBRAN Administration Morphine Sulfate 2 - 4 mg 09/26/23 18:17 09/27/23 10:29 Morphine 4 Mg/Ml Inj IVP 4 mg Q1H PRN Administration Moderate Pain Omeprazole 40 mg 09/27/23 09:00 09/28/23 08:33 Omeprazole [address] PO 40 mg DAILY GIBRAN Administration Sodium Chloride 5 ml 09/26/23 21:00 09/27/23 23:58 Sodium Chloride 0.9 % (Flush) 10 Ml Syringe IVF Not Given BID [facility] Tamsulosin HCl 0.4 mg 09/27/23 09:00 09/28/23 08:30 Tamsulosin Hcl 0.4 Mg Capsule PO 0.4 mg DAILY GIBRAN Administration Discontinued Medications Generic Name Dose Route Start Last Admin Trade Name Freq PRN Reason Stop Dose Admin Bisacodyl 10 mg 09/26/23 18:17 09/26/23 19:03 [address] PO 09/26/23 18:18 10 mg ONCE ONE Administration Bupivacaine HCl 30 ml 09/27/23 17:13 09/27/23 16:20 Bupivacaine 0.25% 30 Ml INJECTION 09/27/23 17:14 16 ml ONCE ONE Administration Sodium Chloride 500 mls @ 500 mls/hr 09/26/23 12:21 09/26/23 15:40 0.9 % Sodium Chloride 500 Ml IV 09/26/23 13:20 Infused .Q1H ONE Infusion Piperacillin Sod/Tazobactam 100 mls @ 100 mls/hr 09/26/23 17:12 09/26/23 23:38 Sod 3.375 gm/ Sodium Chloride IVPB 09/26/23 17:13 Infused ONCE ONE Infusion Piperacillin Sod/Tazobactam 100 mls @ 200 mls/hr 09/27/23 00:00 09/27/23 11:47 Sod 3.375 gm/ Sodium Chloride IVPB 200 mls/hr Q6H GIBRAN Administration Lactated Ringer's 1,000 mls @ 75 mls/hr 09/26/23 18:20 09/27/23 17:45 Lactated Ringers 1000 Ml IV 35 mls/hr .[id number] GIBRAN Infusion Phytonadione 5 mg/ Sodium 50.5 mls @ 100 mls/hr 09/27/23 07:38 09/27/23 07:51 Chloride IVPB 09/27/23 08:08 100 mls/hr ONCE ONE Administration Insulin Aspart 0 unit 09/27/23 00:00 09/27/23 11:48 Insulin Aspart 100 Unit/Ml SUBCUT Not Given 0000,0600,1200,1800 [facility] Protocol Morphine Sulfate 4 mg 09/26/23 12:21 09/26/23 12:50 Morphine 4 Mg/Ml Inj IVP 09/26/23 12:22 4 mg ONCE ONE Administration Morphine Sulfate 4 mg 09/26/23 17:25 09/26/23 17:40 Morphine 4 Mg/Ml Inj IVP 09/26/23 17:26 4 mg ONCE ONE Administration Ondansetron HCl 4 mg 09/26/23 12:21 09/26/23 12:50 Ondansetron 2 Mg/Ml Inj IVP 09/26/23 12:22 4 mg ONCE ONE Administration Pantoprazole Sodium 40 mg 09/26/23 19:00 09/26/23 19:05 Pantoprazole Sodium 40 Mg Inj IVP 40 mg Q24H GIBRAN Administration Phytonadione 10 mg 09/26/23 18:17 09/26/23 19:05 Phytonadione Oral Soln 10 Mg/Ml PO 09/26/23 18:18 10 mg ONCE ONE Administration Polyethylene Glycol 238 gm 09/26/23 18:17 09/26/23 19:04 Polyethylene Glycol 238 Gm Bulk Bottle PO 09/26/23 18:18 238 gm ONCE ONE Administration Medical Decision Making Lab Data Labs: Lab Results 09/26/23 09/26/23 09/26/23 Range/Units 12:41 13:29 18:30 WBC 7.72 (4.50-11.00) K/uL RBC 4.25 L (4.30-5.90) m/uL Hgb 13.5 (13.5-17.5) gm/dL Hct 39.8 (37.0-53.0) % MCV 94 (80-100) fL MCH 32 (26-34) pg MCHC 34 (32-36) gm/dL RDW Coeff of Yaya 12.0 (11.5-15.5) % Plt Count 209 (140-440) K/uL Neut % (Auto) 74.8 H (42.0-72.0) % Lymph % (Auto) 13.1 L (20-44) % Bartholomew % (Auto) 10.1 (0.0-11.0) % Eos % (Auto) 0.9 (0.0-7.0) % Baso % (Auto) 0.1 (0.0-3.0) % Neut # (Auto) 5.80 (1.7-7.0) K/uL Lymph # (Auto) 1.00 (0.90-2.90) K/uL Bartholomew # (Auto) 0.80 (0.00-0.90) K/UL Eos # (Auto) 0.07 (0.00-0.50) K/uL Baso # (Auto) 0.01 (0.00-0.30) K/uL Abs Immat Gran (auto) 0.08 (0.00-0.30) K/uL Imm/Tot Granulo (auto) 1.0 % INR 2.47 H (0.91-1.10) VBG pH (7.32-7.43) VBG pCO2 (40-50) mmHG VBG pO2 (25-47) mmHG VBG HCO3 (21-28) mmol/L Sodium 137 (135-149) mmol/L Potassium 4.3 (3.6-5.1) mmol/L Chloride 104 (96-114) mmol/L Carbon Dioxide 22 (20-32) mmol/L Anion Gap 11 (7-15) mEq/L BUN 12 (7-30) mg/dL Creatinine 0.6 (0.5-1.5) mg/dL Estimated Creat Clear 56.05 Estimated GFR 97 ml/min Glucose 126 H (60-115) mg/dL Lactate 1.8 (0.5-1.9) mmol/L Calcium 9.3 (8.4-10.6) mg/dL Phosphorus (2.5-4.5) mg/dL Magnesium (1.5-2.6) mg/dL Total Bilirubin 1.0 (0.1-1.5) mg/dL Direct Bilirubin 0.2 (0.0-0.5) mg/dL AST 23 (12-35) U/L ALT 28 (4-50) U/L Alkaline Phosphatase 87 (40-150) U/L C-Reactive Protein 2.5 H (0.5-1.0) mg/dL Total Protein 8.0 (6.0-8.3) g/dL Albumin 4.8 (3.3-5.0) g/dL Lipase 94 (23-300) U/L Urine Color Yellow (Yellow) Urine Appearance Clear (Clear) Urine pH 7.5 (5.0-8.5) Ur Specific Ruth 1.015 (1.000-1.030) Urine Protein Negative (Negative) Urine Glucose (UA) Negative (Negative) Urine Ketones Negative (Negative) Urine Blood Negative (Negative) Urine Nitrite Negative (Negative) Urine Bilirubin Negative (Negative) Urine Urobilinogen 0.2 (0.2-1.0) Ur Leukocyte Esterase Negative (Negative) Urine RBC 0-2 (0-2) Urine WBC 0-2 (0-5) Ur Squamous Epith Cells None (None-Few) Urine Bacteria None (None) 09/27/23 Range/Units 05:57 WBC 6.66 (4.50-11.00) K/uL RBC 3.82 L (4.30-5.90) m/uL Hgb 12.3 L (13.5-17.5) gm/dL Hct 36.2 L (37.0-53.0) % MCV 95 (80-100) fL MCH 32 (26-34) pg MCHC 34 (32-36) gm/dL RDW Coeff of Yaya 12.3 (11.5-15.5) % Plt Count 199 (140-440) K/uL Neut % (Auto) 69.4 (42.0-72.0) % Lymph % (Auto) 15.5 L (20-44) % Bartholomew % (Auto) 13.4 H (0.0-11.0) % Eos % (Auto) 1.1 (0.0-7.0) % Baso % (Auto) 0.3 (0.0-3.0) % Neut # (Auto) 4.63 (1.7-7.0) K/uL Lymph # (Auto) 1.00 (0.90-2.90) K/uL Bartholomew # (Auto) 0.90 (0.00-0.90) K/UL Eos # (Auto) 0.07 (0.00-0.50) K/uL Baso # (Auto) 0.02 (0.00-0.30) K/uL Abs Immat Gran (auto) 0.02 (0.00-0.30) K/uL Imm/Tot Granulo (auto) 0.3 % INR 2.17 H (0.91-1.10) VBG pH 7.381 (7.32-7.43) VBG pCO2 48 (40-50) mmHG VBG pO2 27.4 (25-47) mmHG VBG HCO3 28 (21-28) mmol/L Sodium 135 (135-149) mmol/L Potassium 4.3 (3.6-5.1) mmol/L Chloride 101 (96-114) mmol/L Carbon Dioxide 28 (20-32) mmol/L Anion Gap 6 L (7-15) mEq/L BUN 10 (7-30) mg/dL Creatinine 0.7 (0.5-1.5) mg/dL Estimated Creat Clear 57.93 Estimated GFR 93 ml/min Glucose 128 H (60-115) mg/dL Lactate 0.7 (0.5-1.9) mmol/L Calcium 8.8 (8.4-10.6) mg/dL Phosphorus 3.9 (2.5-4.5) mg/dL Magnesium 1.9 (1.5-2.6) mg/dL Total Bilirubin 1.2 (0.1-1.5) mg/dL Direct Bilirubin (0.0-0.5) mg/dL AST 18 (12-35) U/L ALT 24 (4-50) U/L Alkaline Phosphatase 74 (40-150) U/L C-Reactive Protein 4.9 H (0.5-1.0) mg/dL Total Protein 6.8 (6.0-8.3) g/dL Albumin 4.0 (3.3-5.0) g/dL Lipase 68 (23-300) U/L Urine Color (Yellow) Urine Appearance (Clear) Urine pH (5.0-8.5) Ur Specific Ruth (1.000-1.030) Urine Protein (Negative) Urine Glucose (UA) (Negative) Urine Ketones (Negative) Urine Blood (Negative) Urine Nitrite (Negative) Urine Bilirubin (Negative) Urine Urobilinogen (0.2-1.0) Ur Leukocyte Esterase (Negative) Urine RBC (0-2) Urine WBC (0-5) Ur Squamous Epith Cells (None-Few) Urine Bacteria (None) Discharge Plan Discharge Activity Level: Activity as Tolerated Activity Detail: No lifting more than 20 pounds for 2 weeks Discharge Diet: Diabetic Wound Care: Your sutures are under the skin and will dissolve over time. Leave steri strips (white bandages) over incisions until they fall off (or remove after 7 days). OK to shower tomorrow but avoid bathing, soaking or swimming for 2 weeks. Pat the incisions dry. No need to wash or scrub the area. Apply ice to the area as needed for swelling. It is also OK to use a heating pad if this provides more comfort to you.
[2023-09-26] MEDS: 0.9 % SODIUM CHLORIDE 500 ML 500 ML IV (12:49)
[2023-09-26] MEDS: ONDANSETRON 2 MG/ML inj 4 MG IVP (12:50)
[2023-09-26] MEDS: MORPHINE 4 MG/ML INJ IVP ×2 (12:50→17:40)
[2023-09-26 12:57] LABS: Eosinophils Percent Auto 0.9 % (0.0-7.0); Hematocrit 39.8 % (37.0-53.0); Hemoglobin* 13.5 gm/dL (13.5-17.5); Lactate Sepsis w/Reflex* 1.8 mmol/L (0.5-1.9); Lymphocytes Percent Auto 13.1 % (20-44); Mean Corpuscular HGB Conc 34 gm/dL (32-36); Mean Corpuscular Hemoglobin 32 pg (26-34); Mean Corpuscular Volume 94 fL (80-100); Monocytes Percent Auto 10.1 % (0.0-11.0); Neutrophils Percent Auto 74.8 % (42.0-72.0); Platelet Count* 209 K/uL (140-440); Red Blood Count 4.25 m/uL (4.30-5.90); White Blood Count* 7.72 K/uL (4.50-11.00)
[2023-09-26 12:58] LABS: Basophils Absolute Auto 0.01 K/uL (0.00-0.30); Basophils Percent Auto 0.1 % (0.0-3.0); Eosinophils Absolute Auto 0.07 K/uL (0.00-0.50); Immature Granulocytes Abs Auto 0.08 K/uL (0.00-0.30)
[2023-09-26 13:03] LABS: Slide Review Reflex No
[2023-09-26 13:38] LABS: Albumin* 4.8 g/dL (3.3-5.0)
[2023-09-26 13:39] LABS: Chloride* 104 mmol/L (96-114); Potassium* 4.3 mmol/L (3.6-5.1); Sodium* 137 mmol/L (135-149)
[2023-09-26 13:40] LABS: Bilirubin Direct* 0.2 mg/dL (0.0-0.5)
[2023-09-26 13:41] LABS: Alanine Aminotransferase* 28 U/L (4-50); Alkaline Phosphatase* 87 U/L (40-150); Aspartate Amino Transferase* 23 U/L (12-35); Creatinine* 0.6 mg/dL (0.5-1.5); Est. Creatinine Clearance* 56.05; Estimated Glomerular Filt Rate 97 ml/min; Lipase* 94 U/L (23-300)
[2023-09-26 13:42] LABS: Anion Gap 11 mEq/L (7-15); Blood Urea Nitrogen* 12 mg/dL (7-30); Calcium* 9.3 mg/dL (8.4-10.6); Carbon Dioxide* 22 mmol/L (20-32); Glucose* 126 mg/dL (60-115)
[2023-09-26 13:45] LABS: Appearance Urine Clear (Clear); Bilirubin Urine Negative (Negative); Blood Urine Negative (Negative); Color Urine Yellow (Yellow); Glucose Urine Negative (Negative); Ketones Urine Negative (Negative); Leukocyte Esterase Urine Negative (Negative); Nitrite Urine Negative (Negative); Protein Urine Negative (Negative); Specific Gravity Urine 1.015 (1.000-1.030); Urobilinogen Urine 0.2 (0.2-1.0); pH Urine 7.5 (5.0-8.5)
[2023-09-26 13:45] LABS: C Reactive Protein* 2.5 mg/dL (0.5-1.0)
[2023-09-26 14:23] LABS: RBC Urine 0-2 (0-2); WBC Urine 0-2 (0-5)
--- NOTE | 2023-09-26 15:20 | CRLHL7_ITS ---
For Patients: As a result of the Century Cures Act, medical imaging exams and procedure reports are released immediately into your electronic medical record. You may view this report before your referring provider. If you have questions, please contact your health care provider. INDICATION: Abdominal pain TECHNIQUE: Ultrasound abdomen limited. Sonographic images of the right upper quadrant were obtained using de la cruz-scale and color Doppler images. COMPARISON: CT abdomen/pelvis on September 26, 2023 FINDINGS: Visualized liver: Unremarkable Gallbladder: There are multiple shadowing gallstones. The gallbladder wall measures 4 millimeters. No pericholecystic fluid. Sonographic Rayo sign is positive. Common bile duct: 5 mm. IMPRESSION: Cholelithiasis with positive sonographic Rayo`s sign, concerning for acute cholecystitis. Recommend consultation with surgery. Dictated by Yassine Cruz MD @ 09/26/2023 4:47:23 PM (Electronically Signed)
[2023-09-26] MEDS: PIPERACILLIN/TAZOBACTAM 3.375 GM in 0.9 % SODIUM CHLORIDE Mini-bag 100 ML IVPB (17:40)
--- NOTE | 2023-09-26 18:03 | ED.NURSE ---
nurse to nurse report given to M/S.
--- NOTE | 2023-09-26 18:50 | P.IMHP_ITS ---
Hospitalist- H&P: HPI History of Present Illness Date Seen: 09/26/23 Chief complaint: R stomach pain Narrative: Thomas Byers is a 83 year old man who presents with a 3 day history of right- sided abdominal pain. Pain not improving over time. Pain worsening over time. Took a shower earlier today and thought perhaps the pain might have decreased a little bit but after the shower when he lay down the pain was as intense as ever and thus he finally came in to the hospital emergency department for evaluation. Denies fevers, rigors, diaphoresis. Has been passing small quantities of stool. Denies diarrhea. Denies melena, hematochezia. Denies nausea or vomiting. Denies hematemesis. Denies dysuria, urgency, frequency, hematuria. Denies trauma or injury. No recent travel. Taking his medications as prescribed at home. Review of Systems Status of ROS: Reports: 10 or more systems reviewed and unremarkable except as noted in History and below Narrative: Patient notes that the morphine administered in the emergency department help decrease his pain substantially. Acknowledges having a dry mouth and is thirsty. Tells me that when he does go to the bathroom he needs assistance with wiping after having a bowel movement because of the advanced arthritis that he has, he has been unable to wipe himself for several years and receives help from his wi fe. 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, unspecified (ICD-10) Pacemaker ?Z95.0 - Presence of cardiac pacemaker (ICD-10) Anticoagulation monitoring, INR range 2-3 ?Z79.01 - rodent exterminator (current) use of anticoagulants (ICD-10) Paroxysmal atrial fibrillation ?I48.0 - Paroxysmal atrial fibrillation (ICD-10) Anemia ?D64.9 - Anemia, unspecified (ICD-10) Osteoarthritis ?M19.90 - Unspecified osteoarthritis, unspecified site (ICD-10) Chronic diastolic heart failure ?I50.32 - Chronic diastolic (congestive) heart failure (ICD-10) Cervical herniated disc ?M50.20 - Other cervical disc displacement, unspecified cervical region (ICD- 10) Essential hypertension ?I10 - Essential (primary) hypertension (ICD-10) Adenomatous colon polyp ?D12.6 - Benign neoplasm of colon, unspecified (ICD-10) Vitamin B12 deficiency ?E53.8 - Deficiency of other specified B group vitamins (ICD-10) Hepatic steatosis ?K76.0 - Fatty (change of) liver, not elsewhere classified (ICD-10) Chronic meniscal tear of knee ?M23.209 - Derangement of unspecified meniscus due to old tear or injury, unspecified knee (ICD-10) Frequent PVCs ?I49.3 - Ventricular premature depolarization (ICD-10) Stenosing tenosynovitis of finger of left hand ?M65.842 - Other synovitis and tenosynovitis, left hand (ICD-10) Bilateral sensorineural hearing loss ?H90.3 - Sensorineural hearing loss, bilateral (ICD-10) Obstructive sleep apnea on CPAP ?G47.33 - Obstructive sleep apnea (adult) (pediatric) (ICD-10) Diabetes mellitus type 2 in obese ?E11.69 - Type 2 diabetes mellitus with other specified complication (ICD-10) ?E66.9 - Obesity, unspecified (ICD-10) Dyslipidemia ?E78.5 - Hyperlipidemia, unspecified (ICD-10) Severe obesity ?E66.01 - Morbid (severe) obesity due to excess calories (ICD-10) Chronic bilateral low back pain without sciatica ?M54.50 - Low back pain, unspecified (ICD-10) ?G89.29 - Other chronic pain (ICD-10) Benign prostatic hyperplasia ?N40.0 - Benign prostatic hyperplasia without lower urinary tract symptoms (ICD-10) Supraventricular tachycardia ?I47.10 - Supraventricular tachycardia, unspecified (ICD-10) Surgical History History of nasal septoplasty ?Z98.890 - Other specified postprocedural states (ICD-10) History of permanent cardiac pacemaker placement ?Z95.0 - Presence of cardiac pacemaker (ICD-10) History of hernia repair ?Z98.890 - Other specified postprocedural states (ICD-10) ?Z87.19 - Personal history of other diseases of the digestive system (ICD-10) History of radiofrequency ablation procedure for cardiac arrhythmia ?Z98.890 - Other specified postprocedural states (ICD-10) History of carpal tunnel surgery of right wrist ?Z98.890 - Other specified postprocedural states (ICD-10) History of carpal tunnel surgery of left wrist ?Z98.890 - Other specified postprocedural states (ICD-10) Family History Mother Blood disease Heart disease Sister Ovarian cancer Diabetes Brother Colon cancer Father Diabetes Heart disease Social History Smoking Status: Never smoker Second hand tobacco smoke exposure: No How often do you have a drink containing alcohol: never AUDIT-C Alcohol total score: 0 Non-prescribed substance use: denies use service: No Meds Home Medications and Allergies Home Medications Medication Instructions Recorded Confirmed Type acyclovir 400 mg tablet 400 mg PO BID 09/26/23 09/26/23 History amlodipine 5 mg tablet 5 mg PO BID 09/26/23 09/26/23 History ascorbic acid (vitamin C) 1,000 mg 1 g PO DAILY 09/26/23 09/26/23 History tablet atorvastatin 40 mg tablet 40 mg PO HS 09/26/23 09/26/23 History carvedilol 12.5 mg tablet 18.75 mg PO BIDWM 09/26/23 09/26/23 History clonidine HCl 0.1 mg tablet 0.1 mg PO BID 09/26/23 09/26/23 History ferrous sulfate, dried 159 mg (45 159 mg PO DAILY 09/26/23 09/26/23 History mg iron) tablet,extended release (iron ER) fexofenadine 180 mg tablet 180 mg PO DAILY 09/26/23 09/26/23 History (Danii Allergy) finasteride 5 mg tablet 5 mg PO DAILY 09/26/23 09/26/23 History flecainide 50 mg tablet 50 mg PO Q12H 09/26/23 09/26/23 History glimepiride 2 mg tablet 1 mg PO .DAILYWM 09/26/23 09/26/23 History lisinopril 20 mg tablet 20 mg PO BID 09/26/23 09/26/23 History magnesium 200 mg tablet 200 mg PO DAILY 09/26/23 09/26/23 History metformin 1,000 mg tablet 1,000 mg PO BIDWM 09/26/23 09/26/23 History montelukast 10 mg tablet 10 mg PO HS 09/26/23 09/26/23 History omega 7-bch-lac-fish oil 1,000 mg 1 cap PO DAILY 09/26/23 09/26/23 History (120 mg-180 mg) capsule (Fish Oil) pantoprazole 40 mg tablet,delayed 40 mg PO DAILY 09/26/23 09/26/23 History release tamsulosin 0.4 mg capsule 0.4 mg PO DAILY 09/26/23 09/26/23 History warfarin 5 mg tablet 7.5 - 10 mg PO DAILY 09/26/23 09/26/23 History Allergies Allergy/AdvReac Type Severity Reaction Status Date / Time No Known Drug Allergies Allergy Verified 09/26/23 12:09 Exam Narrative: Exam Narrative: Examine him in the emergency department. Appears comfortable in no acute distress. Hard of hearing. Vision intact. External auditory canals are clear. Midline nasal septum. Dry buccal mucosa. Dentition in fair repair. Midline trachea. Supple neck. No JVD or hepatojugular reflux. Lungs are clear to auscultation without wheezing, rhonchi, or rales. Chest wall excursions are full. No CVA tenderness. Heart tones with regular rhythm, normal S1-S2. No obvious murmur, gallop, or rub. Occasional extrasystole. PMI not laterally displaced. Abdomen is protuberant. Active bowel sounds. Soft with subjective discomfort on the right upper side of the abdomen. No rebound or guarding. Moves all 4 extremities. Limited movement of fingers and wrists bilaterally. Advanced changes of arthritis in both hands. No focal motor neurologic deficits. Edema in both feet and calves. Skin is intact. Const: Vital Signs, click to edit/add: Vital Signs - 24 hr 09/26/23 12:05 09/26/23 13:29 09/26/23 14:11 Temperature 98.0 F Pulse Rate 89 Pulse Rate [Pulse Oximeter] 69 60 Respiratory Rate 18 16 Blood Pressure Blood Pressure [Ri ght Upper Arm] 149/72 H Pulse Oximetry 96 97 92 Oxygen Delivery Me thod Room Air Room Air 09/26/23 14:15 09/26/23 14:17 09/26/23 14:20 Temperature Pulse Rate 69 73 Pulse Rate [Pulse Oximeter] 67 Respiratory Rate 18 Blood Pressure 171/95 H Blood Pressure [Ri ght Upper Arm] 171/95 H Pulse Oximetry 97 97 93 Oxygen Delivery Me od Room Air 09/26/23 14:30 09/26/23 14:45 09/26/23 15:00 Temperature Pulse Rate 74 67 61 Pulse Rate [Pulse Oximeter] Respiratory Rate Blood Pressure Blood Pressure [Ri ght Upper Arm] Pulse Oximetry 93 93 91 Oxygen Delivery Me thod 09/26/23 15:15 09/26/23 15:30 09/26/23 16:12 Temperature Pulse Rate 65 60 69 Pulse Rate [Pulse Oximeter] Respiratory Rate Blood Pressure Blood Pressure [Ri ght Upper Arm] Pulse Oximetry 92 94 92 Oxygen Delivery Me od 09/26/23 16:15 09/26/23 17:14 09/26/23 17:15 Temperature Pulse Rate 77 69 65 Pulse Rate [Pulse Oximeter] Respiratory Rate Blood Pressure Blood Pressure [Ri ght Upper Arm] Pulse Oximetry 91 94 95 Oxygen Delivery Me od 09/26/23 17:16 09/26/23 17:16 09/26/23 17:30 Temperature Pulse Rate 68 68 64 Pulse Rate [Pulse Oximeter] Respiratory Rate Blood Pressure 154/75 H 154/75 H Blood Pressure [Ri ght Upper Arm] Pulse Oximetry 93 93 92 Oxygen Delivery Me od 09/26/23 17:46 09/26/23 18:00 Temperature Pulse Rate 66 67 Pulse Rate [Pulse Oximeter] Respiratory Rate Blood Pressure Blood Pressure [Ri ght Upper Arm] Pulse Oximetry 93 94 Oxygen Delivery Me od Hospitalist - H&P: Result Labs Labs: Short CBC 09/26/23 Range/Units 12:41 WBC 7.72 (4.50-11.00) K/uL Hgb 13.5 (13.5-17.5) gm/dL Hct 39.8 (37.0-53.0) % Plt Count 209 (140-440) K/uL BMP 09/26/23 12:41 Sodium 137 Potassium 4.3 Chloride 104 Carbon Dioxide 22 BUN 12 Creatinine 0.6 Glucose 126 H Calcium 9.3 Liver Function 09/26/23 Range/Units 12:41 Total Bilirubin 1.0 (0.1-1.5) mg/dL Direct Bilirubin 0.2 (0.0-0.5) mg/dL AST 23 (12-35) U/L ALT 28 (4-50) U/L Alkaline Phosphatase 87 (40-150) U/L Albumin 4.8 (3.3-5.0) g/dL Urine 09/26/23 Range/Units 13:29 Urine Color Yellow (Yellow) Urine Appearance Clear (Clear) Urine pH 7.5 (5.0-8.5) Ur Specific [place] 1.015 (1.000-1.030) Urine Protein Negative (Negative) Urine Glucose (UA) Negative (Negative) Imaging CT scan - abdomen: Radiologist's impression: 1. No acute abnormality identified to explain patient's right-sided abdominal pain. 2. Chronic incidental findings including cholelithiasis, diverticulosis, right nephrolithiasis. 3. 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 US - abdomen: Radiologist's impression: Cholelithiasis with positive sonographic Rayo's sign, concerning for acute cholecystitis. Assessment and Plan Assessment and plan (1) Abdominal pain: Problem comment: - suspect multifactorial including from possible acute cholecystitis as well as constipation. Status: Acute (2) Constipation: Problem comment: - polyethylene glycol solution to help clear the colon as much as possible - monitor patient's pain after attempted clearing Status: Acute (3) Acute cholecystitis: Problem comment: - emergency department physician spoke with our general surgeon who is aware - piperacillin with tazobactam 3.375 g IV q.6 hours - p.r.n. morphine and ondansetron - NPO after midnight, treat with IV fluids Status: Acute (4) Anticoagulation monitoring, INR range 2-3: Problem comment: - 10 mg oral vitamin K and monitor PT INR and administer more vitamin K if warranted to try to get INR down to the 1.3-1.4 range for possible surgery Status: Acute (5) Paroxysmal atrial fibrillation: Problem comment: - continue with supportive medications - telemetry - electrocardiogram Status: Acute (6) Obstructive sleep apnea on CPAP: Problem comment: - on BiPAP, IPAP 15 and EPAP 6 - continue Status: Acute (7) Diabetes mellitus type 2 in obese: Problem comment: - sliding scale insulin Status: Acute Plan 1. Reviewed with patient and 2. Patient requests full resuscitation in event of cardiopulmonary demise. 3. Patient designates as power of transactional attorney for health should that be required 4. General surgery consultation 5. Plan as specified above 6. Continue with other supportive efforts 7. Patient are agreeable
[2023-09-26 18:54] LABS: INR 2.47 (0.91-1.10); Prothrombin Time 28.6 Seconds
[2023-09-26] MEDS: bisacodyL 5 MG TABLET DR 10 MG PO (19:03)
[2023-09-26] MEDS: carvediloL 6.25 MG TABLET 18.75 MG PO (19:03)
[2023-09-26] MEDS: METFORMIN 1,000 MG TABLET 1000 MG PO (19:03)
[2023-09-26] MEDS: polyethylene glycoL 238 GM BULK BOTTLE PO (19:04)
[2023-09-26] MEDS: PANTOPRAZOLE SODIUM 40 MG INJ IVP (19:05)
[2023-09-26] MEDS: LACTATED RINGERS 1000 ML 1,000 ML 75 ML IV (19:06)
[2023-09-26] MEDS: FLECAINIDE ACETATE 50 MG TABLET PO (20:57)
[2023-09-26] MEDS: ACYCLOVIR 200 MG CAPSULE 400 MG PO (20:57)
[2023-09-26] MEDS: cloNIDine HCL 0.1 MG TABLET PO (20:57)
[2023-09-26] MEDS: lisinopriL 20 MG TABLET PO (20:58)
[2023-09-26] MEDS: AMLODIPINE 5 MG TABLET PO (20:58)
[2023-09-26] MEDS: ATORVASTATIN CALCIUM 40 MG TABLET PO (20:58)
[2023-09-26] MEDS: MONTELUKAST 10 MG TABLET PO (20:59)
--- NOTE | 2023-09-26 23:51 | PC.NURSE ---
End of Shift: Patient admitted to 251. Pleasant and cooperative. Afebrile. Rating pain in abdomen 3/10 and denies need for PRN pain medication. Up with SBA and walker. Tolerating clear liquids with no nausea. Bowel meds started. BMx1.
[2023-09-27] VITALS (24 sets, daily range): BP systolic 125–177; BP diastolic 63–88; PULSE 58–85; RESP 14–20; TEMP 35.9–36.7; O2SAT 91–98
[2023-09-27] MEDS: PIPERACILLIN/TAZOBACTAM 3.375 GM in 0.9 % SODIUM CHLORIDE Mini-bag 100 ML IVPB ×3 (00:06→11:47)
[2023-09-27 06:17] LABS: HCO3 VBG 28 mmol/L (21-28); Lactate* 0.7 mmol/L (0.5-1.9); PCO2 VBG 48 mmHG (40-50); PO2 VBG 27.4 mmHG (25-47); pH VBG 7.381 (7.32-7.43)
[2023-09-27] MEDS: MORPHINE 4 MG/ML INJ IVP ×2 (06:25→10:29)
[2023-09-27 06:35] LABS: Basophils Absolute Auto 0.02 K/uL (0.00-0.30); Basophils Percent Auto 0.3 % (0.0-3.0); Eosinophils Absolute Auto 0.07 K/uL (0.00-0.50); Eosinophils Percent Auto 1.1 % (0.0-7.0); Hematocrit 36.2 % (37.0-53.0); Hemoglobin* 12.3 gm/dL (13.5-17.5); Immature Granulocytes Abs Auto 0.02 K/uL (0.00-0.30); Immature Granulocytes Pct Auto 0.3 %; Lymphocytes Percent Auto 15.5 % (20-44); Mean Corpuscular HGB Conc 34 gm/dL (32-36); Mean Corpuscular Hemoglobin 32 pg (26-34); Mean Corpuscular Volume 95 fL (80-100); Monocytes Percent Auto 13.4 % (0.0-11.0); Neutrophils Absolute Auto 4.63 K/uL (1.7-7.0); Neutrophils Percent Auto 69.4 % (42.0-72.0); Platelet Count* 199 K/uL (140-440); RDW Coefficient of Variation % 12.3 % (11.5-15.5); Red Blood Count 3.82 m/uL (4.30-5.90); White Blood Count* 6.66 K/uL (4.50-11.00)
[2023-09-27 06:40] LABS: Slide Review Reflex No
[2023-09-27 06:46] LABS: Chloride* 101 mmol/L (96-114)
[2023-09-27 06:47] LABS: Potassium* 4.3 mmol/L (3.6-5.1); Sodium* 135 mmol/L (135-149)
[2023-09-27 06:49] LABS: Bilirubin Total* 1.2 mg/dL (0.1-1.5); Creatinine* 0.7 mg/dL (0.5-1.5); Est. Creatinine Clearance* 57.93; Estimated Glomerular Filt Rate 93 ml/min
[2023-09-27 06:50] LABS: Alanine Aminotransferase* 24 U/L (4-50); Alkaline Phosphatase* 74 U/L (40-150); Anion Gap 6 mEq/L (7-15); Aspartate Amino Transferase* 18 U/L (12-35); Blood Urea Nitrogen* 10 mg/dL (7-30); Calcium* 8.8 mg/dL (8.4-10.6); Carbon Dioxide* 28 mmol/L (20-32); Glucose* 128 mg/dL (60-115); Lipase* 68 U/L (23-300); Phosphorus* 3.9 mg/dL (2.5-4.5); Total Protein* 6.8 g/dL (6.0-8.3)
[2023-09-27 06:51] LABS: Magnesium* 1.9 mg/dL (1.5-2.6)
[2023-09-27 06:53] LABS: C Reactive Protein* 4.9 mg/dL (0.5-1.0)
[2023-09-27 07:02] LABS: INR 2.17 (0.91-1.10); Prothrombin Time 25.7 Seconds
--- NOTE | 2023-09-27 07:20 | PC.NURSE ---
Shift note: Multiple large stools throughout the night, pain treated per eMAR with relief, no other complains during this shift
[2023-09-27] MEDS: LACTATED RINGERS 1000 ML 1,000 ML 75 ML IV (07:45)
[2023-09-27] MEDS: carvediloL 6.25 MG TABLET 18.75 MG PO (07:45)
[2023-09-27] MEDS: METFORMIN 1,000 MG TABLET 1000 MG PO (07:45)
[2023-09-27] MEDS: PHYTONADIONE (VIT K1) 5 MG in 0.9 % SODIUM CHLORIDE 50 ml 50 ML 100 MG IVPB (07:51)
--- NOTE | 2023-09-27 08:13 | PM.GSCN ---
History of Present Illness Consult details Date Seen: 09/27/23 Consult date: 09/27/23 Narrative: The patient is an 83-year-old male who for approximately the past 5 days has had right-sided abdominal pain. He stated that he has never had pain like this previously. With this he has had no nausea but has had a decreased appetite. He has not had any fevers. He states that his bowel movements have been decreased since the pain started. In the pain medication that he got in the emergency department helped. He feels as though it has decreased slightly since admission. His bloating has gone down significantly as well. He states that standing makes a discomfort better. He does have atrial fibrillation and takes Coumadin for this. In the ER he was noted to have gallbladder wall thickening and positive sonographic Rayo sign on ultrasound concerning for cholecystitis. He also was noted to have a large amount of stool in the cecum. He was given MiraLax and he has had multiple liquidy bowel movements since. The bowel movements did help with his discomfort, however it is still present. 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, unspecified (ICD-10) Pacemaker ?Z95.0 - Presence of cardiac pacemaker (ICD-10) Anticoagulation monitoring, INR range 2-3 ?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 (ICD-10) Paroxysmal atrial fibrillation ?I48.0 - Paroxysmal atrial fibrillation (ICD-10) Anemia ?D64.9 - Anemia, unspecified (ICD-10) Osteoarthritis ?M19.90 - Unspecified osteoarthritis, unspecified site (ICD-10) Chronic diastolic heart failure ?I50.32 - Chronic diastolic (congestive) heart failure (ICD-10) Cervical herniated disc ?M50.20 - Other cervical disc displacement, unspecified cervical region (ICD-10) Essential hypertension ?I10 - Essential (primary) hypertension (ICD-10) Adenomatous colon polyp ?D12.6 - Benign neoplasm of colon, unspecified (ICD-10) Vitamin B12 deficiency ?E53.8 - Deficiency of other specified B group vitamins (ICD-10) Hepatic steatosis ?K76.0 - Fatty (change of) liver, not elsewhere classified (ICD-10) Chronic meniscal tear of knee ?M23.209 - Derangement of unspecified meniscus due to old tear or injury, unspecified knee (ICD-10) Frequent PVCs ?I49.3 - Ventricular premature depolarization (ICD-10) Stenosing tenosynovitis of finger of left hand ?M65.842 - Other synovitis and tenosynovitis, left hand (ICD-10) Bilateral sensorineural hearing loss ?H90.3 - Sensorineural hearing loss, bilateral (ICD-10) Obstructive sleep apnea on CPAP ?G47.33 - Obstructive sleep apnea (adult) (pediatric) (ICD-10) Diabetes mellitus type 2 in obese ?E11.69 - Type 2 diabetes mellitus with other specified complication (ICD-10) ?E66.9 - Obesity, unspecified (ICD-10) Dyslipidemia ?E78.5 - Hyperlipidemia, unspecified (ICD-10) Severe obesity ?E66.01 - Morbid (severe) obesity due to excess calories (ICD-10) Chronic bilateral low back pain without sciatica ?M54.50 - Low back pain, unspecified (ICD-10) ?G89.29 - Other chronic pain (ICD-10) Benign prostatic hyperplasia ?N40.0 - Benign prostatic hyperplasia without lower urinary tract symptoms (ICD-10) Supraventricular tachycardia ?I47.10 - Supraventricular tachycardia, unspecified (ICD-10) Surgical History History of nasal septoplasty ?Z98.890 - Other specified postprocedural states (ICD-10) History of permanent cardiac pacemaker placement ?Z95.0 - Presence of cardiac pacemaker (ICD-10) History of hernia repair ?Z98.890 - Other specified postprocedural states (ICD-10) ?Z87.19 - Personal history of other diseases of the digestive system (ICD-10) History of radiofrequency ablation procedure for cardiac arrhythmia ?Z98.890 - Other specified postprocedural states (ICD-10) History of carpal tunnel surgery of right wrist ?Z98.890 - Other specified postprocedural states (ICD-10) History of carpal tunnel surgery of left wrist ?Z98.890 - Other specified postprocedural states (ICD-10) Family History Mother Blood disease Heart disease Sister Ovarian cancer Diabetes Brother Colon cancer Father Diabetes Heart disease Social History (Updated 09/27/23 @ 09:00 by Sweta Soni MD) Narrative: Lives with his . He does not smoke. He does not drink alcohol. What is your current living situation?: I presently have a place to live Problems where you live: no known problems Problems where you live details: N/A In the past 12 months, utilities in danger of being shut off: no In past 12 months, lack of transportation kept you from medical appts, meetings, work, or getting things needed for daily living: no In the past 12 mos, have been you worried that your food would run out before you had money to buy more?: never true In the past 12 mos, the food you bought just didn't last and you didn't have money to buy more?: never true Highest level of school completed/degree received: some college, no degree Smoking Status: Former smoker Second hand tobacco smoke exposure: No How often do you have a drink containing alcohol: never How often do you have six or more drinks on one occasion: Never AUDIT-C Alcohol total score: 0 Non-prescribed substance use: denies use Caffeine: Yes How often does anyone, including family, friends and others, physically hurt you: never How often does anyone, including family, friends and others, insult or talk down to you: never How often does anyone, including family, friends and others, threaten you with harm: never How often does anyone, including family, friends and others, scream or curse at you: never service: No Meds Home Medications and Allergies Home Medications Medication Instructions Recorded Confirmed Type acyclovir 400 mg tablet 400 mg PO BID 09/26/23 09/26/23 History amlodipine 5 mg tablet 5 mg PO BID 09/26/23 09/26/23 History ascorbic acid (vitamin C) 1,000 mg 1 g PO DAILY 09/26/23 09/26/23 History tablet atorvastatin 40 mg tablet 40 mg PO HS 09/26/23 09/26/23 History carvedilol 12.5 mg tablet 18.75 mg PO BIDWM 09/26/23 09/26/23 History clonidine HCl 0.1 mg tablet 0.1 mg PO BID 09/26/23 09/26/23 History ferrous sulfate, dried 159 mg (45 159 mg PO DAILY 09/26/23 09/26/23 History mg iron) tablet,extended release (iron ER) fexofenadine 180 mg tablet 180 mg PO DAILY 09/26/23 09/26/23 History (Danii Allergy) finasteride 5 mg tablet 5 mg PO DAILY 09/26/23 09/26/23 History flecainide 50 mg tablet 50 mg PO Q12H 09/26/23 09/26/23 History glimepiride 2 mg tablet 1 mg PO .DAILYWM 09/26/23 09/26/23 History lisinopril 20 mg tablet 20 mg PO BID 09/26/23 09/26/23 History magnesium 200 mg tablet 200 mg PO DAILY 09/26/23 09/26/23 History metformin 1,000 mg tablet 1,000 mg PO BIDWM 09/26/23 09/26/23 History montelukast 10 mg tablet 10 mg PO HS 09/26/23 09/26/23 History omega 3-any-ofa-fish oil 1,000 mg 1 cap PO DAILY 09/26/23 09/26/23 History (120 mg-180 mg) capsule (Fish Oil) pantoprazole 40 mg tablet,delayed 40 mg PO DAILY 09/26/23 09/26/23 History release tamsulosin 0.4 mg capsule 0.4 mg PO DAILY 09/26/23 09/26/23 History warfarin 5 mg tablet 7.5 - 10 mg PO DAILY 09/26/23 09/26/23 History Allergies Allergy/AdvReac Type Severity Reaction Status Date / Time No Known Drug Allergies Allergy Verified 09/26/23 12:09 Exam Narrative: Exam Narrative: General appearance: Alert, cooperative, and in no distress Eyes: PERRLA, eye lids clear, and sclera white HENT Head: Normocephalic Ears: External ears normal Pulmonary: Breathing nonlabored on room air Cardiovascular Heart: Regular rate Extremities: warm and well perfused Gastrointestinal Abdominal: Protuberant. Lower abdominal scars consistent with surgical history. There is a soft reducible umbilical hernia noted. Patient has tenderness in the right upper quadrant as well as epigastric area. Skin: Normal skin color, texture, and turgor. Neurologic: No focal deficits Psychiatric: Alert, oriented, cooperative, normal affect. Const: Vital Signs, click to edit/add: Vital Signs - 24 hr 09/26/23 12:05 09/26/23 13:29 09/26/23 14:11 Temperature 98.0 F Pulse Rate 89 Pulse Rate [Pulse Oximeter] 69 60 Pulse Rate [Right Pulse Oximeter] Respiratory Rate 18 16 Blood Pressure Blood Pressure [Ri ght Arm] Blood Pressure [Ri ght Upper Arm] 149/72 H Pulse Oximetry 96 97 92 Oxygen Delivery [facility] Room Air Room Air 09/26/23 14:15 09/26/23 14:17 09/26/23 14:20 Temperature Pulse Rate 69 73 Pulse Rate [Pulse Oximeter] 67 Pulse Rate [Right Pulse Oximeter] Respiratory Rate 18 Blood Pressure 171/95 H Blood Pressure [Ri ght Arm] Blood Pressure [Ri ght Upper Arm] 171/95 H Pulse Oximetry 97 97 93 Oxygen Delivery [facility] Room Air 09/26/23 14:30 09/26/23 14:45 09/26/23 15:00 Temperature Pulse Rate 74 67 61 Pulse Rate [Pulse Oximeter] Pulse Rate [Right Pulse Oximeter] Respiratory Rate Blood Pressure Blood Pressure [Ri ght Arm] Blood Pressure [Ri ght Upper Arm] Pulse Oximetry 93 93 [facility] 15:15 09/26/23 15:30 09/26/23 16:12 Temperature Pulse Rate 65 60 69 Pulse Rate [Pulse Oximeter] Pulse Rate [Right Pulse Oximeter] Respiratory Rate Blood Pressure Blood Pressure [Ri ght Arm] Blood Pressure [Ri ght Upper Arm] Pulse Oximetry 92 94 [facility] 09/[facility]/23 16:15 09/26/23 17:14 09/26/23 17:15 Temperature Pulse Rate 77 69 65 Pulse Rate [Pulse Oximeter] Pulse Rate [Right Pulse Oximeter] Respiratory Rate Blood Pressure Blood Pressure [Ri ght Arm] Blood Pressure [Ri ght Upper Arm] Pulse Oximetry 91 94 95 Oxygen Delivery Me thod 09/26/23 17:16 09/26/23 17:16 09/26/23 17:30 Temperature Pulse Rate 68 68 64 Pulse Rate [Pulse Oximeter] Pulse Rate [Right Pulse Oximeter] Respiratory Rate Blood Pressure 154/75 H 154/75 H Blood Pressure [Ri ght Arm] Blood Pressure [Ri ght Upper Arm] Pulse Oximetry 93 93 92 Oxygen Delivery Me thod 09/26/23 17:46 09/26/23 18:00 09/26/23 18:10 Temperature 97.9 F Pulse Rate 66 67 Pulse Rate [Pulse Oximeter] Pulse Rate [Right Pulse Oximeter] 70 Respiratory Rate 20 Blood Pressure Blood Pressure [Ri ght Arm] 171/90 H Blood Pressure [Ri ght Upper Arm] Pulse Oximetry 93 94 94 Oxygen Delivery Me od Room Air 09/26/23 18:17 09/26/23 22:47 09/26/23 23:00 Temperature Pulse Rate 67 64 Pulse Rate [Pulse Oximeter] Pulse Rate [Right Pulse Oximeter] 70 Respiratory Rate 20 Blood Pressure Blood Pressure [Ri ght Arm] Blood Pressure [Ri ght Upper Arm] Pulse Oximetry Oxygen Delivery Pr thod 09/26/23 23:00 09/26/23 23:00 09/27/23 03:00 Temperature 98 F 97.9 F Pulse Rate Pulse Rate [Pulse Oximeter] Pulse Rate [Right Pulse Oximeter] 81 65 Respiratory Rate 20 20 Blood Pressure Blood Pressure [Ri ght Arm] 136/74 143/66 H Blood Pressure [Ri ght Upper Arm] Pulse Oximetry 95 95 [facility] Room Air 09/27/23 07:14 09/27/23 07:40 Temperature 98.0 F Pulse Rate 60 Pulse Rate [Pulse Oximeter] Pulse Rate [Right Pulse Oximeter] 62 Respiratory Rate 20 Blood Pressure Blood Pressure [Ri ght Arm] 135/66 Blood Pressure [Ri ght Upper Arm] Pulse Oximetry 92 Oxygen Delivery Me thod Results Labs Labs: Abnormal lab results 09/26/23 09/26/23 09/27/23 Range/Units 12:41 18:30 05:57 RBC 4.25 L 3.82 L (4.30-5.90) m/uL Hgb 12.3 L (13.5-17.5) gm/dL Hct 36.2 L (37.0-53.0) % Neut % (Auto) 74.8 H (42.0-72.0) % Lymph % (Auto) 13.1 L 15.5 L (20-44) % Tripp % (Auto) 13.4 H (0.0-11.0) % INR 2.47 H 2.17 H (0.91-1.10) Anion Gap 6 L (7-15) mEq/L Glucose 126 H 128 H (60-115) mg/dL C-Reactive Protein 2.5 H 4.9 H (0.5-1.0) mg/dL Diabetes panel 09/26/23 09/27/23 Range/Units 12:41 05:57 Sodium 137 135 (135-149) mmol/L Potassium 4.3 4.3 (3.6-5.1) mmol/L Chloride 104 101 (96-114) mmol/L Carbon Dioxide 22 28 (20-32) mmol/L BUN 12 10 (7-30) mg/dL Creatinine 0.6 0.7 (0.5-1.5) mg/dL Glucose 126 H 128 H (60-115) mg/dL Calcium 9.3 8.8 (8.4-10.6) mg/dL AST 23 18 (12-35) U/L ALT 28 24 (4-50) U/L Alkaline Phosphatase 87 74 (40-150) U/L Total Protein 8.0 6.8 (6.0-8.3) g/dL Albumin 4.8 4.0 (3.3-5.0) g/dL Calcium panel 09/26/23 09/27/23 Range/Units 12:41 05:57 Calcium 9.3 8.8 (8.4-10.6) mg/dL Phosphorus 3.9 (2.5-4.5) mg/dL Albumin 4.8 4.0 (3.3-5.0) g/dL Pituitary panel 09/26/23 09/27/23 Range/Units 12:41 05:57 Sodium 137 135 (135-149) mmol/L Potassium 4.3 4.3 (3.6-5.1) mmol/L Chloride 104 101 (96-114) mmol/L Carbon Dioxide 22 28 (20-32) mmol/L BUN 12 10 (7-30) mg/dL Creatinine 0.6 0.7 (0.5-1.5) mg/dL Glucose 126 H 128 H (60-115) mg/dL Calcium 9.3 8.8 (8.4-10.6) mg/dL Adrenal panel 09/26/23 09/27/23 Range/Units 12:41 05:57 Sodium 137 135 (135-149) mmol/L Potassium 4.3 4.3 (3.6-5.1) mmol/L Chloride 104 101 (96-114) mmol/L Carbon Dioxide 22 28 (20-32) mmol/L BUN 12 10 (7-30) mg/dL Creatinine 0.6 0.7 (0.5-1.5) mg/dL Glucose 126 H 128 H (60-115) mg/dL Calcium 9.3 8.8 (8.4-10.6) mg/dL Total Bilirubin 1.0 1.2 (0.1-1.5) mg/dL AST 23 18 (12-35) U/L ALT 28 24 (4-50) U/L Alkaline Phosphatase 87 74 (40-150) U/L Total Protein 8.0 6.8 (6.0-8.3) g/dL Albumin 4.8 4.0 (3.3-5.0) g/dL All other labs normal. Imaging CT scan - pelvis: report reviewed and image reviewed Abdominal ultrasound report/results: report reviewed and image reviewed Additional studies: CT Abdomen/pelvis 09/26/22 IMPRESSION: 1. No acute abnormality identified to explain the patient`s right-sided abdominal pain. 2. Chronic incidental findings including cholelithiasis, diverticulosis and right nephrolithiasis. 3. 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 Please note that all CT scans at this facility use dose modulation, iterative reconstruction, and/or weight-based dosing when appropriate to reduce radiation dose to as low as reasonably achievable. Dictated by Dagmar Brothers MD @ 09/26/2023 3:00:47 PM Ultrasound abdomen 09/26/22: IMPRESSION: Cholelithiasis with positive sonographic Rayo`s sign, concerning for acute cholecystitis. Recommend consultation with surgery. Dictated by Yassine Cruz MD @ 09/26/2023 4:47:23 PM Progress Note:A&P Assessment and plan (1) Paroxysmal atrial fibrillation: Status: Acute (2) Anticoagulation monitoring, INR range 2-3: Status: Acute (3) Diabetes mellitus type 2 in obese: Status: Acute (4) Acute cholecystitis: Status: Acute (5) Constipation: Status: Acute Plan The patient is an 83-year-old male with likely acute cholecystitis. I explained that the treatment for this is laparoscopic cholecystectomy. We discussed the procedure as well as risks and benefits of surgery which include bleeding, infection, bile leak, conversion to open or injury to other structures, specifically the common bile duct. We also discussed recovery. Unfortunately, his INR is still elevated. He is receiving vitamin K this morning. We will recheck this afternoon to see if it is appropriate for surgery. If that is the case then we will plan on surgery later this afternoon. -recheck INR this afternoon -continue to hold anticoagulation -NPO -continue Zosyn
[2023-09-27] MEDS: ASCORBIC ACID 500 MG TABLET 1000 MG PO (08:48)
[2023-09-27] MEDS: FLECAINIDE ACETATE 50 MG TABLET PO ×2 (08:49→22:52)
[2023-09-27] MEDS: OMEPRAZOLE 20 MG CAPSULE DR 40 MG PO (08:49)
[2023-09-27] MEDS: ACYCLOVIR 200 MG CAPSULE 400 MG PO ×2 (08:49→22:50)
[2023-09-27] MEDS: TAMSULOSIN HCL 0.4 MG CAPSULE PO (08:49)
[2023-09-27] MEDS: FINASTERIDE 5 MG TABLET PO (08:49)
[2023-09-27] MEDS: AMLODIPINE 5 MG TABLET PO ×2 (08:49→22:50)
[2023-09-27] MEDS: lisinopriL 20 MG TABLET PO ×2 (08:49→22:52)
[2023-09-27] MEDS: cloNIDine HCL 0.1 MG TABLET PO ×2 (08:49→22:51)
[2023-09-27 14:22] LABS: INR 1.45 (0.91-1.10); Prothrombin Time 18.7 Seconds
--- NOTE | 2023-09-27 14:36 | PM.IMPN1 ---
Progress Note: A&P Assessment and plan (1) Paroxysmal atrial fibrillation: Problem details: - rate controlled on Carvedilol, anticoagulated on Warfarin - telemetry - electrocardiogram - had reassuring Myocardial Perfusion scan 12/2022 (results below) IMPRESSION: 1. There is no evidence of significant myocardial ischemia or infarction. 2. Normal left ventricular ejection fraction of 58 percent. Status: Acute (2) Anticoagulation monitoring, INR range 2-3: Problem details: - 10 mg oral vitamin K and monitor PT INR and administer more vitamin K if warranted to try to get INR down to the 1.3-1.4 range for possible surgery - received 2nd dose of Vitamin K 09/27 am Status: Acute (3) Acute cholecystitis: Problem details: - emergency department physician spoke with our general surgeon who is aware - piperacillin with tazobactam 3.375 g IV q.6 hours - p.r.n. morphine and ondansetron - NPO after midnight, treat with IV fluids Status: Acute Plan - per above Subjective Date Seen: 09/27/23 Interval history: Thomas is a very pleasant 83-year-old male who was admitted to the hospital last night for cholecystitis. He has received vitamin K to reverse warfarin (on this for AFib), tolerating NPO status. Had multiple BMs overnight (was constipated upon admission). Dr. Soni of general surgery is following patient. No history of anesthetic or surgical complications in the past. No concerns from patient or this morning. Exam Narrative: Exam Narrative: GEN: Alert and oriented, sitting up in bed HEENT: EOMIs bilaterally, no scleral icterus CV: RRR, No concerning murmurs R: LCTA bilaterally without concerning wheezing, rales, or rhonchi Ab: + discomfort with palpation of right upper quadrant, no concerning distension Skin: No concerning skin lesions or rashes on exposed skin Neuro: Nonfocal Psych: Appropriate Const: Vital Signs, click to edit/add: Vital Signs - 24 hr 09/26/23 14:45 09/26/23 15:00 09/26/23 15:15 Temperature Pulse Rate 67 61 65 Pulse Rate [Right Pulse Oximeter] Respiratory Rate Blood Pressure Blood Pressure [Ri ght Arm] Pulse Oximetry 93 91 92 Oxygen Delivery Me thod 09/26/23 15:30 09/26/23 16:12 09/26/23 16:15 Temperature Pulse Rate 60 69 77 Pulse Rate [Right Pulse Oximeter] Respiratory Rate Blood Pressure Blood Pressure [Ri ght Arm] Pulse Oximetry 94 92 91 Oxygen Delivery Me thod 09/26/23 17:14 09/26/23 17:15 09/26/23 17:16 Temperature Pulse Rate 69 65 68 Pulse Rate [Right Pulse Oximeter] Respiratory Rate Blood Pressure 154/75 H Blood Pressure [Ri ght Arm] Pulse Oximetry 94 95 93 Oxygen Delivery Me thod 09/26/23 17:16 09/26/23 17:30 09/26/23 17:46 Temperature Pulse Rate 68 64 66 Pulse Rate [Right Pulse Oximeter] Respiratory Rate Blood Pressure 154/75 H Blood Pressure [Ri ght Arm] Pulse Oximetry 93 92 93 Oxygen Delivery Me thod 09/26/23 18:00 09/26/23 18:10 09/26/23 18:17 Temperature 97.9 F Pulse Rate 67 67 Pulse Rate [Right Pulse Oximeter] 70 Respiratory Rate 20 Blood Pressure Blood Pressure [Ri ght Arm] 171/90 H Pulse Oximetry 94 94 [facility] 09/26/23 22:47 09/26/23 23:00 09/26/23 23:00 Temperature Pulse Rate 64 Pulse Rate [Right Pulse Oximeter] 70 Respiratory Rate 20 Blood Pressure Blood Pressure [Ri ght Arm] Pulse Oximetry 95 Oxygen Delivery [facility] Room Air 09/26/23 23:00 09/27/23 03:00 09/27/23 07:14 Temperature 98 F 97.9 F Pulse Rate 60 Pulse Rate [Right Pulse Oximeter] 81 65 Respiratory Rate 20 20 Blood Pressure Blood Pressure [Ri ght Arm] 136/74 143/66 H Pulse Oximetry 95 92 Oxygen Delivery [facility] Room Air Room Air 09/27/23 07:30 09/27/23 07:40 09/27/23 11:05 Temperature 98.0 F 97.8 F Pulse Rate Pulse Rate [Right Pulse Oximeter] 62 65 Respiratory Rate 20 20 16 Blood Pressure Blood Pressure [Ri ght Arm] 135/66 125/76 Pulse Oximetry 92 92 94 Oxygen Delivery [facility] Room Air Room Air Labs Labs: Laboratory Results - last 24 hr 09/26/23 09/27/23 09/27/23 18:30 05:57 13:58 WBC 6.66 RBC 3.82 L Hgb 12.3 L Hct 36.2 L MCV 95 MCH 32 MCHC 34 RDW Coeff of Yaya 12.3 Plt Count 199 Neut % (Auto) 69.4 Lymph % (Auto) 15.[address] [place] % (Auto) 13.4 H Eos % (Auto) 1.1 Baso % (Auto) 0.3 Neut # (Auto) 4.63 Lymph # (Auto) 1.00 [place] # (Auto) 0.90 Eos # (Auto) 0.07 Baso # (Auto) 0.02 Abs Immat Gran (auto) 0.02 Imm/Tot Granulo (auto) 0.3 INR 2.47 H 2.17 H 1.45 H VBG pH 7.381 VBG pCO2 48 VBG pO2 27.4 VBG HCO3 28 Sodium 135 Potassium 4.3 Chloride 101 Carbon Dioxide 28 Anion Gap 6 L BUN 10 Creatinine 0.7 Estimated Creat Clear 57.93 Estimated GFR 93 Glucose 128 H Lactate 0.7 Calcium 8.8 Phosphorus 3.9 Magnesium 1.9 Total Bilirubin 1.2 AST 18 ALT 24 Alkaline Phosphatase 74 C-Reactive Protein 4.9 H Total Protein 6.8 Albumin 4.0 Lipase 68
[2023-09-27] MEDS: BUPIVACAINE 0.25% 30 ML INJECTION (16:20)
--- NOTE | 2023-09-27 17:34 | PM.GSPRC ---
Operative Note Date of procedure: 09/27/23 Pre-op diagnosis: Acute cholecystitis Post-op diagnosis: Same Type of Procedure: Laparoscopic cholecystectomy Indications: The patient is an 83-year-old male who presented with right-sided abdominal pain. He was noted to have gallbladder wall thickening and ultrasound findings concerning for acute cholecystitis. I recommended cholecystectomy and that his anticoagulation be reversed. The patient agreed to proceed after discussion of option. Procedure Description: After discussing the risks and benefits of the procedure, the patient signed informed consent.? The operative site was marked and the patient was brought to the operating room and placed on the operating table in supine position.? Care was taken to pad the patient's pressure points.?? The patient was then intubated by anesthesia.?? The operative site was then prepped and draped in the usual sterile fashion.? A time-out was then performed. Entrance to the abdomen was gained via a 5 mm Visiport in the left upper quadrant. The abdomen was insufflated and briefly surveyed for signs of injury. There was none. A 10 mm umbilical port was placed as well as 2 working ports along the right costal margin, all under direct vision. The patient was then placed in reverse Trendelenburg position with the right side up. The gallbladder fundus was grasped and retracted cephalad. The infundibulum was grasped. A combination of hook cautery and blunt dissection was used to carefully dissect out the cystic duct and artery until they could clearly be seen entering the gallbladder without any intervening structures. The gallbladder was mildly edematous. The gallbladder was dissected off the cystic plate to achieve the critical view. Once this was achieved the cystic duct and artery were each clipped with 2 clips proximally and 1 clip distally and transected with the scissors. The gallbladder was then taken off of the liver bed and removed from the abdomen using an Endo-Catch bag. The gallbladder bed was surveyed for hemostasis which appeared adequate. A small amount of bile which had spilled was suctioned from the abdomen. The ports were then removed and the abdomen desufflated. The umbilical port fascia was closed with 0 Vicryl. The skin was closed with absorbable subcuticular suture. Instrument sponge and needle counts were correct at the end of the case. The patient was then woken and transferred to the PACU in stable condition. ? The patient tolerated the procedure well. Findings: Gallstones and mildly edematous gallbladder indicating acute cholecystitis Anesthesia: GETA Surgeon: Sweta Soni MD Estimated blood loss (mL): 5 Specimen: Gallbladder Condition: stable Disposition: PACU
[2023-09-27] MEDS: LACTATED RINGERS 1000 ML 1,000 ML 35 ML IV (17:44)
--- NOTE | 2023-09-27 17:49 | P.ANES_ITS ---
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
--- NOTE | 2023-09-27 17:49 | W.ANESCHARGE ---
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
--- NOTE | 2023-09-27 20:11 | PC.NURSE ---
Pt alert and oriented. Pt had complaints of pain ranging from 2-5; see EMAR for intervention. Pt independent in room. Pt NPO. Pt has right upper quadrant pain. Pt went to surgery at 1600 and arrived to floor at 1800. Pt has 4 lap sites on abdomen covered with steri strips and some bloody drainage on them. Pt alert but also drowsy upon arrival. Family at bedside. Pt tolerated ice chips and water well. ?
[2023-09-27] MEDS: ATORVASTATIN CALCIUM 40 MG TABLET PO (22:51)
[2023-09-27] MEDS: MONTELUKAST 10 MG TABLET PO (22:52)
[2023-09-28] VITALS: BP 128/78; PULSE 72; RESP 20; TEMP 36.5; O2SAT 91
[2023-09-28 02:51] VITALS: BP 128/67; PULSE 69; RESP 17; TEMP 36.4; O2SAT 95
[2023-09-28] MEDS: LACTATED RINGERS 1000 ML 1,000 ML 125 ML IV (02:55)
[2023-09-28 07:27] LABS: Basophils Absolute Auto 0.01 K/uL (0.00-0.30); Basophils Percent Auto 0.2 % (0.0-3.0); Hematocrit 35.4 % (37.0-53.0); Hemoglobin* 12.2 gm/dL (13.5-17.5); Immature Granulocytes Abs Auto 0.02 K/uL (0.00-0.30); Immature Granulocytes Pct Auto 0.3 %; Lymphocytes Percent Auto 7.5 % (20-44); Mean Corpuscular HGB Conc 35 gm/dL (32-36); Mean Corpuscular Hemoglobin 32 pg (26-34); Mean Corpuscular Volume 93 fL (80-100); Monocytes Percent Auto 8.9 % (0.0-11.0); Neutrophils Percent Auto 83.1 % (42.0-72.0); Platelet Count* 211 K/uL (140-440); RDW Coefficient of Variation % 12.1 % (11.5-15.5); Red Blood Count 3.81 m/uL (4.30-5.90); White Blood Count* 5.72 K/uL (4.50-11.00)
[2023-09-28 07:38] LABS: Albumin* 4.2 g/dL (3.3-5.0); Chloride* 103 mmol/L (96-114); Slide Review Reflex No; Sodium* 134 mmol/L (135-149)
[2023-09-28 07:40] LABS: Anion Gap 8 mEq/L (7-15); Bilirubin Total* 1.1 mg/dL (0.1-1.5); Carbon Dioxide* 23 mmol/L (20-32); Creatinine* 0.7 mg/dL (0.5-1.5); Est. Creatinine Clearance* 57.93; Estimated Glomerular Filt Rate 93 ml/min
[2023-09-28 07:41] LABS: Alanine Aminotransferase* 28 U/L (4-50); Alkaline Phosphatase* 79 U/L (40-150); Aspartate Amino Transferase* 25 U/L (12-35); Blood Urea Nitrogen* 8 mg/dL (7-30); Glucose* 243 mg/dL (60-115); Total Protein* 7.1 g/dL (6.0-8.3)
[2023-09-28 08:00] VITALS: BP 142/67; PULSE 67; PULSE 78; RESP 17; RESP 18; TEMP 36.2; O2SAT 91; O2SAT 94
--- NOTE | 2023-09-28 08:23 | PC.NURSE ---
Patient pleasant, alert and oriented. Transferred with walker and assist of one. Made needs known. Reported some pain in right side of abdomen early last night. Abdomen round and firm. BS active. Charge nurse Sweta updated and spoke with resident. Patient walked hallway with nursing project coordinator. Pt had a large BM during night. Denied any further pain.?
[2023-09-28] MEDS: TAMSULOSIN HCL 0.4 MG CAPSULE PO (08:30)
[2023-09-28] MEDS: FLECAINIDE ACETATE 50 MG TABLET PO (08:30)
[2023-09-28] MEDS: ASCORBIC ACID 500 MG TABLET 1000 MG PO (08:31)
[2023-09-28] MEDS: AMLODIPINE 5 MG TABLET PO (08:31)
[2023-09-28] MEDS: METFORMIN 1,000 MG TABLET 1000 MG PO (08:31)
[2023-09-28] MEDS: ACYCLOVIR 200 MG CAPSULE 400 MG PO (08:31)
[2023-09-28] MEDS: FINASTERIDE 5 MG TABLET PO (08:31)
[2023-09-28] MEDS: cloNIDine HCL 0.1 MG TABLET PO (08:31)
[2023-09-28] MEDS: carvediloL 6.25 MG TABLET 18.75 MG PO (08:32)
[2023-09-28] MEDS: lisinopriL 20 MG TABLET PO (08:32)
[2023-09-28] MEDS: INSULIN ASPART 100 UNIT/ML SUBCUT (08:33)
[2023-09-28] MEDS: OMEPRAZOLE 20 MG CAPSULE DR 40 MG PO (08:33)
[2023-09-28 08:59] VITALS: PULSE 71
--- NOTE | 2023-09-28 10:47 | PM.GSPN ---
Subjective Subjective Date Seen: 09/28/23 Interval history: Timur is doing great. He has not taken any pain medicine since surgery. He is up and moving his bowels. He ate breakfast without any issue. The pain he had before surgery is now gone. Exam Narrative: Exam Narrative: General: No acute distress Abdomen: Protuberant. Incisions are clean and dry without erythema. Appropriately tender for the postop state. Const: Vital Signs, click to edit/add: Vital Signs - 24 hr 09/27/23 11:05 09/27/23 14:30 09/27/23 14:48 Temperature 97.8 F 97.4 F L Pulse Rate 67 Pulse Rate [Right Pulse Oximeter] 65 58 L Respiratory Rate 16 16 Blood Pressure Blood Pressure [Ri ght Arm] 125/76 137/68 Pulse Oximetry 94 94 Oxygen Delivery Me thod Room Air Room Air Oxygen Flow Rate 09/27/23 15:00 09/27/23 15:00 09/27/23 17:18 Temperature 97.4 F L 97.4 F L Pulse Rate 71 Pulse Rate [Right Pulse Oximeter] 58 L Respiratory Rate 16 16 14 Blood Pressure Blood Pressure [Ri ght Arm] 137/68 Pulse Oximetry 94 94 95 Oxygen Delivery Me thod Room Air Room Air Non Rebreather Mas k Oxygen Flow Rate 6 09/27/23 17:25 09/27/23 17:30 09/27/23 17:35 Temperature Pulse Rate 61 62 60 Pulse Rate [Right Pulse Oximeter] Respiratory Rate 15 18 14 Blood Pressure 177/88 H 176/87 H Blood Pressure [Ri ght Arm] Pulse Oximetry 95 98 95 Oxygen Delivery Me thod Nasal Cannula Oxygen Flow Rate 2 09/27/23 17:40 09/27/23 17:45 09/27/23 17:50 Temperature 97 F L Pulse Rate 61 60 60 Pulse Rate [Right Pulse Oximeter] Respiratory Rate 14 18 16 Blood Pressure 148/73 H 160/78 H 158/82 H Blood Pressure [Ri ght Arm] Pulse Oximetry 95 93 94 Oxygen Delivery Me thod Nasal Cannula Oxygen Flow Rate 2 09/27/23 18:00 09/27/23 18:15 09/27/23 18:30 Temperature 97.5 F L 96.8 F L 97.1 F L Pulse Rate 61 Pulse Rate [Right Pulse Oximeter] 60 61 Respiratory Rate 18 18 18 Blood Pressure Blood Pressure [Ri ght Arm] 154/78 H 159/80 H 165/81 H Pulse Oximetry 94 91 Oxygen Delivery Me thod Nasal Cannula Nasal Cannula Nasal Cannula Oxygen Flow Rate 96 1.5 1.5 09/27/23 18:45 09/27/23 19:00 09/27/23 19:30 Temperature 96.6 F L 96.9 F L Pulse Rate Pulse Rate [Right Pulse Oximeter] 60 60 72 Respiratory Rate 18 18 Blood Pressure Blood Pressure [Ri ght Arm] 174/75 H 165/74 H 144/73 H Pulse Oximetry 91 91 Oxygen Delivery Me thod Nasal Cannula Nasal Cannula Nasal Cannula Oxygen Flow Rate 1.5 1.5 1.5 09/27/23 20:00 09/27/23 22:00 09/27/23 23:00 Temperature 97.4 F L 97.2 F L 97.5 F L Pulse Rate Pulse Rate [Right Pulse Oximeter] 70 62 85 Respiratory Rate 18 18 18 Blood Pressure Blood Pressure [Ri ght Arm] 150/73 H 144/63 H 155/67 H Pulse Oximetry 91 93 92 Oxygen Delivery Me thod Room Air Nasal Cannula Nasal Cannula Oxygen Flow Rate 1.5 1.5 1.5 09/27/23 23:00 09/27/23 23:00 09/27/23 23:00 Temperature 97.5 F L Pulse Rate 77 Pulse Rate [Right Pulse Oximeter] 85 Respiratory Rate 18 18 Blood Pressure Blood Pressure [Ri ght Arm] 155/67 H Pulse Oximetry 92 92 Oxygen Delivery Me thod Nasal Cannula Nasal Cannula Oxygen Flow Rate 1.5 1.5 09/28/23 00:00 09/28/23 02:51 09/28/23 08:59 Temperature 97.7 F 97.5 F L Pulse Rate 71 Pulse Rate [Right Pulse Oximeter] 72 69 Respiratory Rate 20 17 Blood Pressure Blood Pressure [Ri ght Arm] 128/78 128/67 Pulse Oximetry 91 95 Oxygen Delivery Me thod Nasal Cannula [place] Nasal Ca nnula Oxygen Flow Rate 1.5 1.5 Labs/Imaging Labs Labs: White blood cell count is normal. Hemoglobin is 12. INR 1.2 Progress Note:A&P Assessment and plan (1) S/P laparoscopic cholecystectomy: Status: Acute Plan The patient is an 83-year-old male who is postop day 1 from laparoscopic cholecystectomy. He is doing great. He may discharge home today. He can restart his Coumadin starting tomorrow. -discharge orders placed and also reviewed with the patient and his -he has not taken any pain medication since surgery, therefore I recommended he use Tylenol for pain control as an outpatient. -follow up with me at [facility] in 2 weeks.
--- NOTE | 2023-09-28 10:49 | PM.DS1 ---
DS: Providers Provider Date Seen: 09/28/23 Date of admission: 09/27/23 12:13 Primary care physician: Teresa Salazar DO Admitting Clinician: Nikolas Nunez MD Attending Physician on discharge: Amberly Torres MD Date of Discharge: 09/28/23 DS: Diagnosis Discharge Diagnosis (1) Paroxysmal atrial fibrillation: Status: Acute Problem details: - rate controlled on Carvedilol, anticoagulated on Warfarin - telemetry - electrocardiogram - had reassuring Myocardial Perfusion scan 12/2022 (results below) IMPRESSION: 1. There is no evidence of significant myocardial ischemia or infarction. 2. Normal left ventricular ejection fraction of 58 percent. (2) Pacemaker: Status: Acute Problem details: - MRI conditionally safe requiring interrogation/reprogramming right before and right after the MRI (3) Anticoagulation monitoring, INR range 2-3: Status: Acute Problem details: - 10 mg oral vitamin K and monitor PT INR and administer more vitamin K if warranted to try to get INR down to the 1.3-1.4 range for possible surgery - received 2nd dose of Vitamin K 09/27 am - restart Warfarin at home on 09/29/23 (4) Acute cholecystitis: Status: Acute Problem details: - laparoscopic cholecystectomy with Dr. Soni of General Surgery on 09/27/23 (5) Constipation: Status: Acute Problem details: - resolved with Miralax, + passing flatus and stool on day of discharge (6) Diabetes mellitus type 2 in obese: Status: Acute Problem details: - BG [phone] during stay DS: Summary Hospital Course Hospital Course: Patient is a delightful 83-year-old male who presented to the hospital with abdominal pain. He was found to have acute cholecystitis, underwent successful cholecystectomy with Dr. Soni of General Surgery on 09/27/2023. Postoperatively, he did exceptionally well. Tolerating po intake and passing flatus on POD1, requesting d/c home with . Comorbidities noted above, remained stable during stay. Patient will resume Coumadin on 09/29/23 at home. Status at Discharge Functional status at discharge: independent ambulation Overall status at discharge: patient is progressing back to baseline Time Spent with Patient Time attestation: Total time spent providing and/or coordinating discharge services: Time spent: Less than 30 minutes Exam Narrative: Exam Narrative: GEN: Alert and oriented, laying comfortably in bed HEENT: EOMIs bilaterally, no scleral icterus CV: RRR, no concerning murmurs R: LCTA bilaterally without concerning wheezing Ab: protuberant, nontender, incisions from surgery are well healed Skin: No concerning skin lesions or rashes on exposed skin Neuro: Nonfocal Psych: Appropriate Const: Vital Signs, click to edit/add: Vital Signs - 24 hr 09/27/23 11:05 09/27/23 14:30 09/27/23 14:48 Temperature 97.8 F 97.4 F L Pulse Rate 67 Pulse Rate [Right Pulse Oximeter] 65 58 L Respiratory Rate 16 16 Blood Pressure Blood Pressure [Ri ght Arm] 125/76 137/68 Pulse Oximetry 94 94 Oxygen Delivery Me thod Room Air Room Air Oxygen Flow Rate 09/27/23 15:00 09/27/23 15:00 09/27/23 17:18 Temperature 97.4 F L 97.4 F L Pulse Rate 71 Pulse Rate [Right Pulse Oximeter] 58 L Respiratory Rate 16 16 14 Blood Pressure Blood Pressure [Ri ght Arm] 137/68 Pulse Oximetry 94 94 95 Oxygen Delivery Me thod Room Air Room Air Non Rebreather Mas k Oxygen Flow Rate 6 09/27/23 17:25 09/27/23 17:30 09/27/23 17:35 Temperature Pulse Rate 61 62 60 Pulse Rate [Right Pulse Oximeter] Respiratory Rate 15 18 14 Blood Pressure 177/88 H 176/87 H Blood Pressure [Ri ght Arm] Pulse Oximetry 95 98 95 Oxygen Delivery Me thod Nasal Cannula Oxygen Flow Rate 2 09/27/23 17:40 09/27/23 17:45 09/27/23 17:50 Temperature 97 F L Pulse Rate 61 60 60 Pulse Rate [Right Pulse Oximeter] Respiratory Rate 14 18 16 Blood Pressure 148/73 H 160/78 H 158/82 H Blood Pressure [Ri ght Arm] Pulse Oximetry 95 93 94 Oxygen Delivery Me thod Nasal Cannula Oxygen Flow Rate 2 09/27/23 18:00 09/27/23 18:15 09/27/23 18:30 Temperature 97.5 F L 96.8 F L 97.1 F L Pulse Rate 61 Pulse Rate [Right Pulse Oximeter] 60 61 Respiratory Rate 18 18 18 Blood Pressure Blood Pressure [Ri ght Arm] 154/78 H 159/80 H 165/81 H Pulse Oximetry 94 91 Oxygen Delivery Me thod Nasal Cannula Nasal Cannula Nasal Cannula Oxygen Flow Rate 96 1.5 1.5 09/27/23 18:45 09/27/23 19:00 09/27/23 19:30 Temperature 96.6 F L 96.9 F L Pulse Rate Pulse Rate [Right Pulse Oximeter] 60 60 72 Respiratory Rate 18 18 Blood Pressure Blood Pressure [Ri ght Arm] 174/75 H 165/74 H 144/73 H Pulse Oximetry 91 91 Oxygen Delivery Me thod Nasal Cannula Nasal Cannula Nasal Cannula Oxygen Flow Rate 1.5 1.5 1.5 09/27/23 20:00 09/27/23 22:00 09/27/23 23:00 Temperature 97.4 F L 97.2 F L 97.5 F L Pulse Rate Pulse Rate [Right Pulse Oximeter] 70 62 85 Respiratory Rate 18 18 18 Blood Pressure Blood Pressure [Ri ght Arm] 150/73 H 144/63 H 155/67 H Pulse Oximetry 91 93 92 Oxygen Delivery Me thod Room Air Nasal Cannula Nasal Cannula Oxygen Flow Rate 1.5 1.5 1.5 09/27/23 23:00 09/27/23 23:00 09/27/23 23:00 Temperature 97.5 F L Pulse Rate 77 Pulse Rate [Right Pulse Oximeter] 85 Respiratory Rate 18 18 Blood Pressure Blood Pressure [Ri ght Arm] 155/67 H Pulse Oximetry 92 92 Oxygen Delivery Me thod Nasal Cannula Nasal Cannula Oxygen Flow Rate 1.5 1.5 09/28/23 00:00 09/28/23 02:51 09/28/23 08:59 Temperature 97.7 F 97.5 F L Pulse Rate 71 Pulse Rate [Right Pulse Oximeter] 72 69 Respiratory Rate 20 17 Blood Pressure Blood Pressure [Ri ght Arm] 128/78 128/67 Pulse Oximetry 91 95 Oxygen Delivery Me thod Nasal Cannula [place] Nasal Ca nnula Oxygen Flow Rate 1.5 1.5 DS: Data Data Completed and Pending Labs on day of discharge: Labs from last 24 hours 09/28/23 09/27/23 06:46 13:58 WBC 5.72 RBC 3.81 L Hgb 12.2 L Hct 35.4 L MCV 93 MCH 32 MCHC 35 RDW Coeff of Yaya 12.1 Plt Count 211 Neut % (Auto) 83.1 H Lymph % (Auto) 7.5 L [place] % (Auto) 8.9 Eos % (Auto) 0.0 Baso % (Auto) 0.2 Neut # (Auto) 4.80 Lymph # (Auto) 0.40 L [place] # (Auto) 0.50 Eos # (Auto) 0.00 Baso # (Auto) 0.01 Abs Immat Gran (auto) 0.02 Imm/Tot Granulo (auto) 0.3 INR 1.20 H 1.45 H Sodium 134 L Potassium 4.0 Chloride 103 Carbon Dioxide 23 Anion Gap 8 BUN 8 Creatinine 0.7 Estimated Creat Clear 57.93 Estimated GFR 93 Glucose 243 H Calcium 9.0 Total Bilirubin 1.1 AST 25 ALT 28 Alkaline Phosphatase 79 Total Protein 7.1 Albumin 4.2 Discharge Plan Discharge Disposition: Home, Self-Care Date of Admission: 09/27/23 12:13 Attending Provider on Discharge: Amberly Torres Consulting Providers: Sweta Soni Primary Care Provider: Teresa Salazar Condition: Improved Anticipated Discharge Date/Time: 09/28/23 10:45 Discharge Medications: Continued acyclovir 400 mg tablet 400 mg PO BID amlodipine 5 mg tablet 5 mg PO BID ascorbic acid (vitamin C) 1,000 mg tablet 1 g PO DAILY atorvastatin 40 mg tablet 40 mg PO HS carvedilol 12.5 mg tablet 18.75 mg PO BIDWM clonidine HCl 0.1 mg tablet 0.1 mg PO BID finasteride 5 mg tablet 5 mg PO DAILY flecainide 50 mg tablet 50 mg PO Q12H glimepiride 2 mg tablet 1 mg PO .DAILYWM lisinopril 20 mg tablet 20 mg PO BID metformin 1,000 mg tablet 1,000 mg PO BIDWM montelukast 10 mg tablet 10 mg PO HS pantoprazole 40 mg tablet,delayed release (DR/EC) 40 mg PO DAILY tamsulosin 0.4 mg capsule 0.4 mg PO DAILY fexofenadine [Danii Allergy] 180 mg tablet 180 mg PO DAILY magnesium 200 mg tablet 200 mg PO DAILY iron 159 mg (45 mg iron) tablet extended release 159 mg PO DAILY omega [id number] oil [Fish Oil] 1,000 mg (120 mg-180 mg) capsule 1 cap PO DAILY Held warfarin 5 mg tablet 7.5 - 10 mg PO DAILY Hold Instructions: Resume on 09/29/23. restart home dosing of Warfarin on , 09/29/2023 Rx Instructions: 10 MG TUESDAY 7.5 MG OTHER DAYS Discharge Orders: Discharge Order (Routine); Ordered 09/28/23 Ordered By: Amberly Torres Patient Education: General Anesthesia (DC), Laparoscopic Cholecystectomy (DC), Post-Operative Instructions: Laparoscopic Cholecystectomy Additional Instructions: Pain control: Use Acetaminophen (Tylenol) for pain as directed on packaging. Please call the hospital if you develop severe pain that is not controlled by Tylenol. If you have not had a bowel movement in 3 days, try taking Miralax as directed on the package. This is available over the counter. Follow-up Follow up with Dr. Soni in 2-3 weeks Please call if you are experiencing severe pain, nausea, vomiting, difficulty urinating, fever or have not had bowel movement in 4 days after surgery. Activity Level: Activity as Tolerated Activity Detail: No lifting more than 20 pounds for 2 weeks Discharge Diet: Diabetic Follow Up Appointments: Sweta Soni MD [Staff Physician] - (please make appt for f/u with Dr. Soni in 1-2 weeks ) Teresa Salazar DO [Primary Care Provider] - (patient can make appt with Dr. Salazar as needed) Forms: [employer] Info Instructions
--- NOTE | 2023-09-28 12:50 | PC.NURSE ---
Patient prepared for discharge. IV's removed, pain managed with Tylenol, discharge information completed. All questions by patient and spouse answered. Patient escorted off the unit via wheelchair by nurse. Transported home in private vehicle. All belongings sent home with patient.
== END 2023-09-28 12:30 | disposition home or self-care (01) | DRG 418 ==
LOC: ED 12:29 → MEDSURG 18:04
PROVIDERS: Family Medicine; Surgery; Admitting Provider Internal Medicine; Emergency Provider Emergency Medicine; PCP Family Medicine; Visit Provider Internal Medicine
PROC: 0FT44ZZ Resection of Gallbladder, Percutaneous Endoscopic Approach (ICD-10-PCS; CPT 47562; principal; 2023-09-27 16:15)
DX: K80.00 Calculus of gallbladder with acute cholecystitis without obstruction (principal); I50.32 Chronic diastolic (congestive) heart failure; I48.0 Paroxysmal atrial fibrillation; Z79.01 Long term (current) use of anticoagulants; K59.00 Constipation, unspecified; G47.33 Obstructive sleep apnea (adult) (pediatric); E11.9 Type 2 diabetes mellitus without complications; Z95.0 Presence of cardiac pacemaker; E66.9 Obesity, unspecified; Z68.35 Body mass index [BMI] 35.0-35.9, adult; I11.0 Hypertensive heart disease with heart failure; R79.1 Abnormal coagulation profile
CPT/HCPCS: 00790; 36415; 74177; 76705; 80048; 80053; 80076; 81001; 82803; 82962; 83605; 83690; 83735; 84100; 85025; 85610; 86140; 88304; 93005; 99100; 99140; 99284; A9270; C9113; G0378; J0330; J0665; J1100; J2250; J2270; J2405; J2543; J2704; J3010; J3430; J3490; J7030; J7120; Q9967

== ENCOUNTER 2024-05-23 09:30 | Outpatient (RCR) | payer MEDICARE, SELFPAY | END 2024-07-31 10:46 | disposition home or self-care (01) | PROVIDERS: PCP Family Medicine; Visit Provider Family Medicine | DX: M25.561 Pain in right knee (principal); G89.29 Other chronic pain; M17.11 Unilateral primary osteoarthritis, right knee; M23.306 Other meniscus derangements, unspecified meniscus, right knee; R26.2 Difficulty in walking, not elsewhere classified; Z51.89 Encounter for other specified aftercare | CPT/HCPCS: 97110; 97116; 97140; 97162 ==

== ENCOUNTER 2024-12-31 14:45 | Outpatient (RCR) | payer MEDICARE, SELFPAY | END 2025-01-04 13:06 | disposition home or self-care (01) | PROVIDERS: PCP Family Medicine; Visit Provider Family Medicine | DX: M18.12 Unilateral primary osteoarthritis of first carpometacarpal joint, left hand (principal); M25.532 Pain in left wrist; M25.521 Pain in right elbow; Z51.89 Encounter for other specified aftercare | CPT/HCPCS: 97035; 97110; 97140; 97165; 97530; 97535; X5282 ==